=== PATIENT | male | born 1955 | race Caucasian/White ===

== ENCOUNTER → 2016-07-21 | Outpatient (CLI) | payer OTHER ==
[~2016-07-21] MED LIST: BIMA0.01 OPR; BRIM0.2S OPR; MAGN400T6 PO; METF500T PO; MISCCAP PO; MULT-506 PO; NIAC500T11 PO; OMEG10007 PO; POTA99TA PO; TRIATAB3 PO; TUMERIC PO; [UNRECOGNIZED DRUG - CODE] OPR
[2016-07-21 14:54] LABS: BLOOD UREA NITROGEN 14 mg/dl (7-18); BUN/CREATININE RATIO 10.9 (10-20); CARBON DIOXIDE 28 mmol/L (21-32); CHLORIDE 103 mmol/L (98-107); GLUCOSE 125 mg/dl (70-99); POTASSIUM 3.8 mmol/L (3.5-5.1); SODIUM 138 mmol/L (136-145)
[2016-07-21 15:06] LABS: CALCIUM 9.2 mg/dl (8.5-10.1)
[2016-07-21 15:50] LABS: ESTIMATED AVERAGE GLUCOSE 151 mg/dl; HA1C FLAG Normal (Normal)
== END | disposition home or self-care (01) ==
LOC: C.LAB1850 13:38
PROVIDERS: ATTEND Internal Medicine
DX: E11.9 Type 2 diabetes mellitus without complications (principal)

== ENCOUNTER → 2017-03-16 | Outpatient (CLI) | payer OTHER ==
[2017-03-16 12:08] LABS: HEMATOCRIT 45.8 % (42-52); MEAN CELL VOLUME 89.6 fL (80-100); MEAN CORPUSCULAR HEMOGLOBIN 31.3 pg (25-34); MEAN CORPUSCULAR HGB CONC 34.9 g/dl (32-36); MEAN PLATELET VOLUME 9.8 fL (7.4-10.4); PLATELET COUNT 227 K/uL (130-400); RED CELL DISTRIBUTION WIDTH CV 13.6 % (11.5-14.5); RED CELL DISTRIBUTION WIDTH SD 44.9 fL (36.4-46.3); WHITE BLOOD COUNT 8.91 K/uL (4.8-10.8)
[2017-03-16 12:18] LABS: HEMOGLOBIN A1C 7.3 % (4.5-5.6)
[2017-03-16 12:20] LABS: ALT/SGPT 26 U/L (12-78); AST/SGOT 15 U/L (15-37); BLOOD UREA NITROGEN 16 mg/dl (7-18); CALCIUM 9.5 mg/dl (8.5-10.1); CARBON DIOXIDE 29 mmol/L (21-32); CHOLESTEROL 161 mg/dl (0-200); CREATININE 1.15 mg/dl (0.60-1.40); GLUCOSE 139 mg/dl (70-99); POTASSIUM 3.7 mmol/L (3.5-5.1); SODIUM 135 mmol/L (136-145)
[2017-03-16 12:24] LABS: LDL CHOLESTEROL CALCULATED 85 mg/dl
== END | disposition home or self-care (01) ==
LOC: C.LAB1850 10:48
PROVIDERS: ATTEND Internal Medicine
DX: E11.9 Type 2 diabetes mellitus without complications (principal); I10 Essential (primary) hypertension; Z12.5 Encounter for screening for malignant neoplasm of prostate; M19.90 Unspecified osteoarthritis, unspecified site

== ENCOUNTER 2024-05-14 12:48 | Inpatient (IN) ==
[2024-05-14 14:04] LABS: Basophils # (auto) 0.03 K/uL (0.00-0.20); Basophils % (auto) 0.5 %; Eosinophils # (auto) 0.27 K/uL (0.00-0.50); Eosinophils % (auto) 4.2 %; Hematocrit (blood only) 50.2 % (42.0-52.0); Hemoglobin 16.6 g/dl (14.0-18.0); Immature Granulocytes # (auto) 0.01 K/uL (0.01-0.20); Immature Granulocytes % (auto) 0.2 %; Lymphocytes # (auto) 2.24 K/uL (1.20-3.40); Lymphocytes % (auto) 34.9 %; Mean Corpuscular Hemoglobin 30.1 pg (25.0-34.0); Mean Corpuscular Hgb Conc 33.1 g/dL (32.0-36.0); Mean Corpuscular Volume 91.1 fL (80.0-100.0); Mean Platelet Volume 10.1 fL (9.4-12.4); Monocytes % (auto) 10.9 %; Neutrophils # (auto) 3.17 K/uL (1.40-6.50); Neutrophils % (auto) 49.3 %; Platelet Count 195 K/uL (130-400); RDW Coefficient of Variation 13.2 % (11.5-14.5); RDW Standard Deviation 44.3 fL (36.4-46.3); Red Blood Count 5.51 M/uL (4.70-6.10); White Blood Count 6.42 K/ul (4.8-10.8)
--- NOTE | 2024-05-14 14:08 | Emergency Department Note ---
Impression & Plan Cystitis, Dementia, Acute delirium ED Provider Note NAME: YARELY COOK AGE: 69 SEX: M : 1955 ARRIVES VIA: Walk-In INFORMANT: Patient, ED PROVIDER(S): Tony Garcia MD CHIEF COMPLAINT: Confusion, agitation HPI: This is a 69-year-old male who with history of dementia presenting for confusion/agitation. Patient with his reported the history. Over the past few days patient has been not sleeping and wandering around at night and is more verbally aggressive. He has been urinary incontinence numerous times the past few days. He is refused to take his medications as well. He has a baseline history of dementia and is alert and orient x 1. Otherwise he does not know where he is, what year it is or other basic facts that is why the family lives. His states that he is sent here by his primary care doctor's office. ROS: See above HPI for pertinent positives & negatives. A total of 10 systems reviewed and were otherwise negative. Unable to obtain PHYSICAL EXAMINATION: General: resting comfortably in no acute distress Head: Normocephalic and atraumatic Eyes: Normal inspection, extraocular muscles intact Ear, nose, throat: Normal external exam Neck: Normal range of motion Respiratory: lungs clear to auscultation bilaterally Cardiovascular: Regular rate/rhythm, no murmur GI: soft, nontender, no guarding or rebound Extremities: nontender, moves all extremities Neuro: The patient awake and alert, appropriately conversive, no focal deficits, symmetric faces, not oriented Skin: Warm, dry, and intact MEDICAL DECISION MAKING: This is 69-year-old male presenting for confusion of agitation. Initial evaluate the patient without in the room as she was parking the car. Unable to provide any significant history. When does arrive, she was able to give the history as above. Will screen out UTI, intracranial bleed and metabolic disease. Otherwise this may be continuation of patient's dementia versus acute delirium. -Bloodwork is reviewed showing no significant leukocytosis, anemia, electrolyte or creatinine abnormality. Negative troponin -Negative CT head -Discussed with about patient current symptoms and possibly for placement. She is on board about getting placement as he is outside of her current ability to care for him. She has she has not slept in multiple days due to his current condition. -Urinalysis does reveal signs of UTI. Patient will be mated for UTI, continue delirium/dementia and placement -Care discussed Dr. Fam for admission Differential diagnosis: Dementia, delirium, cystitis, intracranial hemorrhage, stroke Independent History obtained from: Diagnostics interpreted by me: ECG: None Cardiac Monitoring: An order was placed for continuous cardiac monitoring. The monitor shows a rate of 81 with sinus rhythm. Past Med/Surg History Problem List (Updated 05/14/24 @ 19:49 by Tony Garcia MD) Acute delirium (Acute) Dementia (Acute) Cystitis (Acute) AMS (altered mental status) Hallucination Physical deconditioning Posterior cortical atrophy Alzheimer's dementia Screening PSA (prostate specific antigen) Adenomatous polyp of colon (Acute) Arthritis (Acute) Chronic sinusitis (Acute) Type 2 diabetes mellitus (Acute) Glaucoma (Acute) HTN (hypertension) (Acute) Medical History Abnormal brain MRI Word finding problem Posterior cortical atrophy Alzheimer's dementia Adenomatous polyp of colon Arthritis Chronic sinusitis Type 2 diabetes mellitus Glaucoma HTN (hypertension) Surgical History H/O oral surgery History of cornea transplant S/P cataract surgery Family History Father Myocardial infarction Diabetes Cardiac disorder Mother Breast cancer Brother Alcohol abuse Aunt Cardiac disorder Denies family history of Ovarian cancer Prostate cancer Colorectal cancer Social History Smoking Status: Former smoker Tobacco Type: Pipe and Cigars Second Hand Exposure: No; Do You Dip or Chew Tobacco: No; Hx Alcohol Use: No Hx Substance Use: No Preferred Language: Maori Communication Ability: Effective Visual Impairment: No Limitations Hearing Ability: Normal marital status: Current Living Situation: Spouse current occupational status: retired Feels Safe at Home: Yes Childhood Exposure to Second-Hand Smoke: Yes Dental Care, Regularly: Yes Physical Activity Frequency: 1-2 Times per Week Seatbelt Use: always Sunscreen Use: Yes Allergies Allergies Allergy/AdvReac Type Severity Reaction Status Date / Time bacitracin Allergy Unknown HIVES Verified 05/05/24 09:59 latex Allergy Unknown RASH Verified 05/05/24 09:59 neomycin Allergy Unknown HIVES Verified 05/05/24 09:59 Penicillins Allergy Unknown Verified 05/05/24 09:59 polymyxin B Allergy Unknown HIVES Verified 05/05/24 09:59 shellfish derived Allergy Unknown SHORTNESS Verified 05/05/24 09:59 OF BREATH strawberry Allergy Unknown Verified 05/05/24 09:59 Home Meds Home Medications Medication Instructions Recorded Confirmed dorzolamide 22.3 mg-timolol 6.8 1 drops ophthalmic (eye) BID 09/22/18 05/14/24 mg/mL eye drops magnesium oxide 400 mg (241.3 mg 400 mg PO DAILY #90 tabs 09/22/18 05/14/24 magnesium) tablet latanoprost 0.005 % eye drops 1 drp ophthalmic (eye) HS 05/30/22 05/14/24 prednisolone acetate 1 % eye 1 drp OPR QAM 05/30/22 05/14/24 drops,suspension mecobalamin (vitamin B12) 5,000 5,000 mcg PO .3XWEEKLY 12/27/22 05/14/24 mcg chewable tablet Vitamin C 1 gummy PO DAILY 05/14/24 05/14/24 cholecalciferol (vitamin D3) 125 125 mcg PO .3XWEEKLY 05/14/24 05/14/24 mcg (5,000 unit) tablet (Vitamin D3) metformin 500 mg tablet,extended 500 mg PO BID 05/14/24 05/14/24 release 24 hr rivastigmine tartrate 3 mg capsule 1.5 mg PO BID 05/14/24 05/14/24 trazodone 50 mg tablet 50 mg PO PM 05/14/24 05/14/24 triamterene 37.5 1 tab PO QAM HTN 05/14/24 05/14/24 mg-hydrochlorothiazide 25 mg tablet Previous Rx's Medication Instructions Recorded blood-glucose meter (OneTouch #1 ea 09/27/18 Ultra2 Meter) blood sugar diagnostic #2 Boxes 10/04/23 dulaglutide 3 mg/0.5 mL 3 mg (0.5 mL) subcut WK #2 mL 12/06/23 subcutaneous pen injector lancets 33 gauge #2 Boxes 01/11/24 rosuvastatin 5 mg tablet 5 mg PO 3XWK #36 tabs 03/07/24 memantine 10 mg tablet 10 mg PO BID 90 days #180 tabs 05/05/24 donepezil 10 mg tablet 10 mg PO QPM 90 days #90 tabs 05/12/24 Results & Data (ED) Vital Signs Vital Signs - 24 hr 05/14/24 12:50 05/14/24 15:03 05/14/24 15:42 Temperature 36.5 C Temperature Source Temporal Artery Scan Pulse Rate 81 Pulse Rate [Right Finger] 70 78 Respiratory Rate 18 18 18 Respiratory Effort / Characteristics Non-Labored Non-Labored Spontaneous Respiratory Depth Normal Normal Respiratory Pattern Regular Regular Blood Pressure 153/94 H Blood Pressure [Right Arm] 170/92 H 155/96 H Blood Pressure Mean 113 Blood Pressure Mean [Right Arm] 118 115 Pulse Oximetry 99 100 96 Oxygen Delivery Method Room Air Room Air Room Air Sepsis Recent Fever Within 48 Hours No Sepsis New/Unexplained Change in Mental Status N/A Sepsis Action Taken by Nursing No Action Required 05/14/24 16:21 05/14/24 16:50 05/14/24 16:51 Temperature Temperature Source Pulse Rate 84 Pulse Rate [Right Finger] 84 Respiratory Rate 15 Respiratory Effort / Characteristics Non-Labored Spontaneous Respiratory Depth Normal Respiratory Pattern Regular Blood Pressure Blood Pressure [Right Arm] 134/86 Blood Pressure Mean Blood Pressure Mean [Right Arm] 102 Pulse Oximetry 98 Oxygen Delivery Method Room Air Room Air Sepsis Recent Fever Within 48 Hours Sepsis New/Unexplained Change in Mental Status Sepsis Action Taken by Nursing 05/14/24 18:30 Temperature Temperature Source Pulse Rate Pulse Rate [Right Finger] 81 Respiratory Rate 18 Respiratory Effort / Characteristics Respiratory Depth Respiratory Pattern Blood Pressure Blood Pressure [Right Arm] 151/104 H Blood Pressure Mean Blood Pressure Mean [Right Arm] 119 Pulse Oximetry 95 Oxygen Delivery Method Room Air Sepsis Recent Fever Within 48 Hours Sepsis New/Unexplained Change in Mental Status Sepsis Action Taken by Nursing Laboratory Data 05/14/24 13:40 05/14/24 13:40 Lab Results 05/14/24 05/14/24 Range/Units 13:40 17:00 WBC 6.42 (4.8-10.8) K/ul RBC 5.51 (4.70-6.10) M/uL Hgb 16.6 (14.0-18.0) g/dl Hct 50.2 (42.0-52.0) % MCV 91.1 (80.0-100.0) fL MCH 30.1 (25.0-34.0) pg MCHC 33.1 (32.0-36.0) g/dL RDW Std Deviation 44.3 (36.4-46.3) fL RDW Coeff of Myah 13.2 (11.5-14.5) % Plt Count 195 (130-400) K/uL MPV 10.1 (9.4-12.4) fL Immature Gran % (Auto) 0.2 % Neut % (Auto) 49.3 % Lymph % (Auto) 34.9 % [place] % (Auto) 10.9 % Eos % (Auto) 4.2 % Baso % (Auto) 0.5 % Neut # (Auto) 3.17 (1.40-6.50) K/uL Lymph # (Auto) 2.24 (1.20-3.40) K/uL [place] # (Auto) 0.70 H (0.11-0.59) K/uL Eos # (Auto) 0.27 (0.00-0.50) K/uL Baso # (Auto) 0.03 (0.00-0.20) K/uL Immature Gran # (Auto) 0.01 (0.01-0.20) K/uL Sodium 140 (136-145) mmol/L Potassium 4.0 (3.5-5.1) mmol/L Chloride 104 (98-107) mmol/L Carbon Dioxide 30 (21-32) mmol/L Anion Gap 6 (3-11) BUN 28 H (6-23) mg/dl Creatinine 1.23 (0.6-1.4) mg/dl Est Cr Clr Drug Dosing Not Reportable eGFR 62.77 BUN/Creatinine Ratio 22.8 H (10-20) Glucose 126 H (70-99(Fasting)) mg/dl Calcium 9.9 (8.6-10.3) mg/dl Total Bilirubin 0.7 (0.2-1.0) mg/dl AST 16 (13-39) U/L ALT 12 (7-52) U/L Alkaline Phosphatase 49 (34-104) U/L Troponin I High Sens < 2.3 (0-20) pg/ml Total Protein 8.0 (6.0-8.3) gm/dl Albumin 4.4 (3.4-5.0) gm/dl Globulin 3.6 (2.5-4.0) gm/dl Albumin/Globulin Ratio 1.2 (0.9-2) Urine Color Yellow Urine Appearance Clear (Clear) Urine pH 6.0 (4.5-7.5) Ur Specific [place] 1.023 (1.000-1.030) Urine Protein Negative (Negative) Urine Glucose (UA) Negative (Negative) Urine Ketones Trace H (Negative) Urine Blood Negative (Negative) Urine Nitrite Negative (Negative) Urine Bilirubin Negative (Negative) Urine Urobilinogen Negative (Negative) Ur Leukocyte Esterase Trace H (Negative) Urine WBC (Auto) 6-10 H (0-5) /hpf Urine RBC (Auto) 0-2 (0-2) /hpf U Hyaline Cast (Auto) 0-2 (0-2) /lpf U Epithel Cells (Auto) 0-2 (0-2) /hpf Urine Bacteria (Auto) None Seen (None Seen) Imaging Data Radiologist's Impression: Head CT 05/14/24 13:58 CT head/brain wo con CLINICAL HISTORY: 69 years-old Male with confusion, agitation, ?fall. Acutely altered mental status TECHNIQUE: Multiple axial CT images of the head were obtained without contrast. A dose lowering technique was utilized adhering to the principles of ALARA. CT DOSE: 625.8 mGy.cm COMPARISON: 10/19/2017 FINDINGS: No acute intracranial hemorrhage, midline shift, intracranial mass, territorial ischemia or abnormal extra-axial collection. Involutional changes with white matter hypodensities suggestive of chronic microvascular ischemic disease, progressed from prior. Ex vacuo ventriculomegaly has also progressed. The calvarium is intact. Chronic severe mucosal thickening of the right maxillary sinus. Mastoid air cells are clear. IMPRESSION: No acute intracranial abnormality. ACT 112: Negative or not required by law. The above report was generated using voice recognition software. It may contain grammatical, syntax or spelling errors. Electronically signed by: Evangelista Paredes M.D. 05/14/2024 2:18 PM Discharge Plan Visit Data Chief Complaint: Confusion Stated Complaint: DEMENTIA ISSUES ED Provider: Tony Garcia Discharge Problem: Cystitis, Dementia, Acute delirium Forms Stand Alone Forms: [facility] [employer] Prescriptions Prescriptions: No Action (DME) blood-glucose meter [OneTouch Ultra2 Meter] misc See Dose Instructions .ROUTE .MEDSUPPLY Qty: 1 0RF Dose Instruction: As directed Rx Instructions: As directed (DME) blood sugar diagnostic Strip See Dose Instructions .ROUTE .MEDSUPPLY Qty: 2 3RF Dose Instruction: As directed Rx Instructions: Test 2 times daily dulaglutide 3 mg/0.5 mL pen injector 3 mg subcut WK Qty: 2 3RF Rx Instructions: sundays (DME) lancets 33 gauge misc See Dose Instructions .ROUTE .MEDSUPPLY Qty: 2 3RF Dose Instruction: As directed Rx Instructions: Test 2 times daily rosuvastatin 5 mg tablet 5 mg PO 3XWK Qty: 36 3RF Rx Instructions: sun, sun and sunday donepezil 10 mg tablet 10 mg PO QPM 90 Days Qty: 90 2RF dorzolamide-timolol 22.3-6.8 mg/mL drops 1 drops OP BID Patient Comments: Instill 1 drop into right eye magnesium oxide 400 mg (241.3 mg magnesium) tablet 400 mg PO DAILY Qty: 90 prednisolone acetate 1 % drops,suspension 1 drp OPR QAM Patient Comments: Instill 1 drop into right eye latanoprost 0.005 % drops 1 drp ophthalmic (eye) HS mecobalamin (vitamin B12) 5,000 mcg tablet,chewable 5,000 mcg PO .3XWEEKLY Rx Instructions: three times a week -sun,sun,sunday memantine 10 mg tablet 10 mg PO BID 90 Days Qty: 180 1RF cholecalciferol (vitamin D3) [Vitamin D3] 125 mcg (5,000 unit) Tablet 125 mcg PO .3XWEEKLY Rx Instructions: sun,sun,sunday Vitamin C 1 gummy PO DAILY Rx Instructions: otc unknown strength trazodone 50 mg tablet 50 mg PO PM triamterene-hydrochlorothiazid 37.5-25 mg tablet 1 tab PO QAM metformin 500 mg tablet extended release 24 hr 500 mg PO BID rivastigmine tartrate 3 mg capsule 1.5 mg PO BID Referrals Referrals: Chris Clayton MD [Primary Care Provider] -
--- NOTE | 2024-05-14 14:19 | CT Scan Report ---
CT head/brain wo con CLINICAL HISTORY: 69 years-old Male with confusion, agitation, ?fall. Acutely altered mental status TECHNIQUE: Multiple axial CT images of the head were obtained without contrast. A dose lowering tech nique was utilized adhering to the principles of ALARA. CT DOSE: 625.8 mGy.cm COMPARISON: 10/19/2017 FINDINGS: No acute intracranial hemorrhage, midline shift, intracranial mass, territorial ischemia or abnormal extra-axial collection. Involutional changes with white matter hypodensities suggestive of chronic mi crovascular ischemic disease, progressed from prior. Ex vacuo ventriculomegaly has also progressed. The calvarium is intact. Chronic severe mucosal thickening of the right maxillary sinus. Mastoid air cells are clear. IMPRESSION: No acute intracranial abnormality. ACT 112: Negative or not required by law. The above report was generated using voice recognition software. It may contain grammatical, syntax o r spelling errors. Electronically signed by: Evangelista Paredes M.D. 05/14/2024 2:18 PM
[2024-05-14 14:38] LABS: Alanine Aminotransferase 12 U/L (7-52); Albumin Globulin Ratio 1.2 (0.9-2); Albumin Level 4.4 gm/dl (3.4-5.0); Alkaline Phosphatase 49 U/L (34-104); Anion Gap 6 (3-11); BUN Creatinine Ratio 22.8 (10-20); Bilirubin,Total 0.7 mg/dl (0.2-1.0); Blood Urea Nitrogen 28 mg/dl (6-23); Calcium 9.9 mg/dl (8.6-10.3); Carbon Dioxide 30 mmol/L (21-32); Chloride 104 mmol/L (98-107); Globulin 3.6 gm/dl (2.5-4.0); Glucose 126 mg/dl (70-99(Fasting)); Sodium 140 mmol/L (136-145); Troponin I High Sensitivity < 2.3 pg/ml (0-20)
[2024-05-14 14:51] LABS: Aspartate Aminotransferase 16 U/L (13-39)
--- NOTE | 2024-05-14 17:32 | History & Physical Report ---
Date of Service May 14, 2024 Assessment & Plan (1) AMS (altered mental status): Plan: Nehemiah is 69-year-old male with a history of progressive Alzheimer's dementia who presents with acute worsening behavioral disturbance, refusing med and aggressiveness not typical of his dementia. He has had incontinence and increased urinary frequency concerning for potential UTI. Per family also have difficulty meeting his current care needs especially with his behavioral change. He is admitted for treatment of UTI, PT/OT, and possible placement if he has a significant contribution from his progressive dementia Acute behavioral disturbance. History of Alzheimer's dementia, history of posterior cortical atrophy - A&Ox1 at baseline - Refusing meds at home Continue donepezil 10 mg daily CThead without acute findings. No focal neurologic deficits to suggest [facility] pathology ?UTI Suspected UTI Patient with incontinence and dysuria UA with trace leukocyte esterase, slight white blood cells. No nitrites or bacteria are seen. UCx pending. Insulin allergic. Ciprofloxacin continued Type II DM Hold home metformin Hold home dulaglutide Basal bolus SSI while admitted Hypertension Continue home antihypertensive PT/OT pending. Case management consulted to facilitate resources due to increased care needs DVT prophylaxis: Lovenox Disposition: MSO CODE STATUS: DNR/DNI (2) Alzheimer's dementia: (3) Type 2 diabetes mellitus: (4) HTN (hypertension): History of Present Illness Primary Care Provider: Chris Clayton MD Chase is a 69-year-old male with a past medical history of type II DM, hypertension, Alzheimer's dementia, posterior cortical atrophy, glaucoma presents to the ER for confusion/agitation and insomnia over the previous few days. Has been more aggressive and with new urinary incontinence. History is limited by dementia. CThead is without acute findings. UA is pending CBC is without leukocytosis BMP is without significant metabolic derangements Patient seen at bedside with his present. History is limited by mental status he is alert and oriented to name only. Redirectable and pleasant but is not able to give nearly any history. Does report that he has had some burning with urination for a few days. His reports that he was more aggressive refusing medications and delirium/confusion last 24 hours. Aggressiveness is very atypical and new, has not occurred with his dementia previously. He has had several episodes of incontinence. Concerned about a UTI due to this. If he does not have a UTI then notes that due to current care needs would need to pursue placement. Nehemiah denies fever chills sweats chest pain chest pressure abdominal pain. Medical History: Reviewed Medications: Reviewed Surgical History: Reviewed Family history: Reviewed Allergies: Reviewed Social History: Reviewed Code Status: DNR/DNI Allergies Allergy/AdvReac Type Severity Reaction Status Date / Time bacitracin Allergy Unknown HIVES Verified 05/05/24 09:59 latex Allergy Unknown RASH Verified 05/05/24 09:59 neomycin Allergy Unknown HIVES Verified 05/05/24 09:59 Penicillins Allergy Unknown Verified 05/05/24 09:59 polymyxin B Allergy Unknown HIVES Verified 05/05/24 09:59 shellfish derived Allergy Unknown SHORTNESS Verified 05/05/24 09:59 OF BREATH strawberry Allergy Unknown Verified 05/05/24 09:59 Home Medications Medication Instructions Recorded Confirmed Type dorzolamide 22.3 mg-timolol 6.8 1 drops ophthalmic (eye) BID 09/22/18 05/14/24 History mg/mL eye drops magnesium oxide 400 mg (241.3 mg 400 mg PO DAILY #90 tabs 09/22/18 05/14/24 History magnesium) tablet blood-glucose meter (3FunnelTouch #1 ea 09/27/18 05/05/24 Rx Ultra2 Meter) latanoprost 0.005 % eye drops 1 drp ophthalmic (eye) HS 05/30/22 05/14/24 History prednisolone acetate 1 % eye 1 drp OPR QAM 05/30/22 05/14/24 History drops,suspension mecobalamin (vitamin B12) 5,000 5,000 mcg PO .3XWEEKLY 12/27/22 05/14/24 History mcg chewable tablet blood sugar diagnostic #2 Boxes 10/04/23 05/05/24 Rx dulaglutide 3 mg/0.5 mL 3 mg (0.5 mL) subcut WK #2 mL 12/06/23 05/14/24 Rx subcutaneous pen injector lancets 33 gauge #2 Boxes 01/11/24 05/05/24 Rx rosuvastatin 5 mg tablet 5 mg PO 3XWK #36 tabs 03/07/24 05/14/24 Rx memantine 10 mg tablet 10 mg PO BID 90 days #180 tabs 05/05/24 05/14/24 Rx donepezil 10 mg tablet 10 mg PO QPM 90 days #90 tabs 05/12/24 05/14/24 Rx Vitamin C 1 gummy PO DAILY 05/14/24 05/14/24 History cholecalciferol (vitamin D3) 125 125 mcg PO .3XWEEKLY 05/14/24 05/14/24 History mcg (5,000 unit) tablet (Vitamin D3) metformin 500 mg tablet,extended 500 mg PO BID 05/14/24 05/14/24 History release 24 hr rivastigmine tartrate 3 mg capsule 1.5 mg PO BID 05/14/24 05/14/24 History trazodone 50 mg tablet 50 mg PO PM 05/14/24 05/14/24 History triamterene 37.5 1 tab PO QAM HTN 05/14/24 05/14/24 History mg-hydrochlorothiazide 25 mg tablet Past Med/Surg History Problem List (Updated 05/14/24 @ 18:17 by Jose Fam MD) AMS (altered mental status) Hallucination Physical deconditioning Posterior cortical atrophy Alzheimer's dementia Screening PSA (prostate specific antigen) Adenomatous polyp of colon (Acute) Arthritis (Acute) Chronic sinusitis (Acute) Type 2 diabetes mellitus (Acute) Glaucoma (Acute) HTN (hypertension) (Acute) Medical History Abnormal brain MRI Word finding problem Posterior cortical atrophy Alzheimer's dementia Adenomatous polyp of colon Arthritis Chronic sinusitis Type 2 diabetes mellitus Glaucoma HTN (hypertension) Surgical History H/O oral surgery History of cornea transplant S/P cataract surgery Family History Father Myocardial infarction Diabetes Cardiac disorder Mother Breast cancer Brother Alcohol abuse Aunt Cardiac disorder Denies family history of Ovarian cancer Prostate cancer Colorectal cancer Social History Smoking Status: Former smoker Tobacco Type: Pipe and Cigars Second Hand Exposure: No; Do You Dip or Chew Tobacco: No; Hx Alcohol Use: No Hx Substance Use: No Preferred Language: Uzbek Communication Ability: Effective Visual Impairment: No Limitations Hearing Ability: Normal marital status: Current Living Situation: Spouse current occupational status: retired Feels Safe at Home: Yes Childhood Exposure to Second-Hand Smoke: Yes Dental Care, Regularly: Yes Physical Activity Frequency: 1-2 Times per Week Seatbelt Use: always Sunscreen Use: Yes Physical Exam Physical Exam: General: Oriented to name only. Alert. Answers questions appropriately. Nontoxic nondistressed HEENT: Atraumatic, normocephalic. 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 Patient has decreased visual acuity and is legally blind at baseline. No visual change. Hearing grossly intact Pulm: CTAB A&P. -wheezes, -rales, -rhonchi. Symmetrical chest rise. No increased work of breathing. No respiratory distress. Cardiac: RRR, -mrg. Radial pulses intact and symmetrical. Abdominal: Nontender, nondistended, soft. BS present. Extremities: Warm and dry Results & Data Results & Data Vital Signs (Past 12 Hours) Vital Signs Temp Pulse Pulse Resp BP BP Pulse Ox 05/14/24 16:51 05/14/24 16:50 84 15 134/86 98 05/14/24 16:21 84 05/14/24 15:42 78 18 155/96 H 96 05/14/24 15:03 70 18 170/92 H 100 05/14/24 12:50 36.5 C 81 18 153/94 H 99 O2 Del Method 05/14/24 16:51 Room Air 05/14/24 16:50 Room Air 05/14/24 16:21 05/14/24 15:42 Room Air 05/14/24 15:03 Room Air 05/14/24 12:50 Room Air PG Care Time/CCT Total # of Minutes Spent Total Time Spent with Patient: Total time spent is greater than 50% in coordination of care (as documented) at patient's floor/unit and/or counseling patient: Coding Level of Care Code 74463 INT INP/OBS CARE MIN Diagnoses AMS (altered mental status) R41.82 Mild Alzheimer's dementia without behavioral disturbance, psychotic disturbance, mood disturbance, or anxiety, unspecified timing of dementia onset G30.9; F02.A0 Alzheimer's disease onset: unspecified onset Dementia behavioral or psychological symptom: without behavioral, psychotic, or mood disturbance or anxiety Dementia severity: mild Type 2 diabetes mellitus E11.9 HTN (hypertension) I10 (2) Alzheimer's dementia Alzheimer's disease onset: unspecified onset Dementia behavioral or psychological symptom: without behavioral, psychotic, or mood disturbance or anxiety Dementia severity: mild Qualified Code(s): G30.9 - Alzheimer's disease, unspecified; F02.A0 - Dementia in other diseases classified elsewhere, mild, without behavioral disturbance, psychotic disturbance, mood disturbance, and anxiety
[2024-05-14 18:27] LABS: Appearance Urine Clear (Clear); Bacteria Urine Automated None Seen (None Seen); Bilirubin Urine Negative (Negative); Blood Urine Negative (Negative); Cast Urine Automated 0-2 /lpf (0-2); Color Urine Yellow; Epithelial Cell Urine Auto 0-2 /hpf (0-2); Glucose Urine UA Negative (Negative); Ketones Urine Trace (Negative); Leukocyte Esterase Urine Trace (Negative); Nitrite Urine Negative (Negative); Protein Urine Negative (Negative); RBC Urine Automated 0-2 /hpf (0-2); Specific Gravity Urine 1.023 (1.000-1.030); Urobilinogen Urine Negative (Negative)
[2024-05-14] MEDS: CIPROFLOXACIN 250 MG TAB PO SCH (19:55)
[2024-05-14] MEDS ORDERED: GLUCAGON FOR INJ 1 MG VIAL SQ PRN (20:23)
[2024-05-14] MEDS ORDERED: GLUCOSE 40% GEL 15 GM TUBE PO PRN (20:23)
[2024-05-14] MEDS ORDERED: CARBOHYDRATES FOR HYPOGLYCEMIA PO PRN (20:23)
[2024-05-14] MEDS ORDERED: GLUCOSE 10 TAB/TUBE PO PRN (20:23)
[2024-05-14] MEDS ORDERED: DEXTROSE 50% 50 ML SYRINGE IV PRN (20:23)
[2024-05-14] MEDS: INSULIN ASPART PER UNIT CHARGE SC SCH (21:11)
[2024-05-14] MEDS: RIVASTIGMINE TARTRATE 1.5 MG CAP PO SCH (21:42)
[2024-05-14] MEDS: MEMANTINE HCL 10 MG TAB PO SCH (21:42)
[2024-05-14] MEDS: traZODone HCL 50 MG TAB PO SCH (21:42)
[2024-05-14] MEDS: DONEPEZIL HCL 10 MG TAB PO SCH (21:42)
[2024-05-14] MEDS: LATANOPROST 0.005% OP SOLN 2.5 ML BTL OP SCH (21:43)
[2024-05-14] MEDS: ENOXAPARIN INJ 40 MG/0.4 ML SYR SQ SCH (21:43)
[2024-05-14] MEDS: DORZOLAMIDE/TIMOLOL 22.3/6.8MG/ML 10 ML BTL OP SCH (21:43)
[2024-05-15] MEDS: hydrOXYzine HCl 10 MG TAB PO ONE (04:08)
[2024-05-15] MEDS: TRIAMTERENE/HCTZ 37.5/25MG TAB PO SCH (08:27)
[2024-05-15] MEDS: ASCORBIC ACID 500 MG TAB PO SCH (08:27)
[2024-05-15] MEDS: MAGNESIUM OXIDE 400 MG TAB PO SCH (08:27)
[2024-05-15] MEDS: LANTUS PER UNIT CHARGE SQ SCH (08:28)
[2024-05-15] MEDS: prednisoLONE acetate 1% OP SUSP 5 ML BTL OPR SCH (08:28)
--- NOTE | 2024-05-15 18:13 | Hospitalist Progress Note ---
Date of Service May 15, 2024 Assessment & Plan (1) AMS (altered mental status): Plan: Nehemiah is 69-year-old male with a history of progressive Alzheimer's dementia who presents with acute worsening behavioral disturbance, refusing med and aggressiveness not typical of his dementia. He has had incontinence and increased urinary frequency concerning for potential UTI. Per family also have difficulty meeting his current care needs especially with his behavioral change. He is admitted for treatment of UTI, PT/OT, and possible placement if he has a significant contribution from his progressive dementia Acute behavioral disturbance. History of Alzheimer's dementia, history of posterior cortical atrophy - A&Ox1 at baseline - Refusing meds at home Continue donepezil 10 mg daily CThead without acute findings. No focal neurologic deficits to suggest [facility] pathology ?UTI Suspected UTI Patient with incontinence and dysuria UA with trace leukocyte esterase, slight white blood cells. No nitrites or bacteria are seen. UCx pending. PCN allergic. Ciprofloxacin continued Type II DM Hold home metformin Hold home dulaglutide Basal bolus SSI while admitted Hypertension Continue home antihypertensive PT/OT pending. Case management consulted to facilitate resources due to increased care needs DVT prophylaxis: Lovenox Disposition: MSO CODE STATUS: DNR/DNI (2) Alzheimer's dementia: (3) Type 2 diabetes mellitus: (4) HTN (hypertension): Admission and Anticipated Discharge Date Admission Date: May 14, 2024 Subjective resting comfortably, no complaints, oriented to person but calm Physical Exam Physical Exam: General: Oriented to name only. Alert. Answers questions appropriately. Nontoxic nondistressed HEENT: Atraumatic, normocephalic. 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 Patient has decreased visual acuity and is legally blind at baseline. No visual change. Hearing grossly intact Pulm: CTAB A&P. -wheezes, -rales, -rhonchi. Symmetrical chest rise. No increased work of breathing. No respiratory distress. Cardiac: RRR, -mrg. Radial pulses intact and symmetrical. Abdominal: Nontender, nondistended, soft. BS present. Extremities: Warm and dry Results & Data Results & Data Vital Signs (Past 12 Hours) Vital Signs Temp Pulse Pulse Resp BP Pulse Ox O2 Del Method 05/15/24 13:45 36.4 C L 82 20 156/94 H 99 Room Air 05/15/24 11:29 75 75 17 144/82 H 95 Room Air 05/15/24 07:00 36.8 C 85 85 18 156/79 H 95 Room Air PG Care Time/CCT Total # of Minutes Spent Total Time Spent with Patient: Total time spent is greater than 50% in coordination of care (as documented) at patient's floor/unit and/or counseling patient: Coding Level of Care Code 25160 SUB INP/OBS CARE 2/35MIN Diagnoses AMS (altered mental status) R41.82 Mild Alzheimer's dementia without behavioral disturbance, psychotic disturbance, mood disturbance, or anxiety, unspecified timing of dementia onset G30.9; F02.A0 Alzheimer's disease onset: unspecified onset Dementia severity: mild Dementia behavioral or psychological symptom: without behavioral, psychotic, or mood disturbance or anxiety Type 2 diabetes mellitus E11.9 HTN (hypertension) I10 (2) Alzheimer's dementia Alzheimer's disease onset: unspecified onset Dementia severity: mild Dementia behavioral or psychological symptom: without behavioral, psychotic, or mood disturbance or anxiety Qualified Code(s): G30.9 - Alzheimer's disease, unspecified; F02.A0 - Dementia in other diseases classified elsewhere, mild, without behavioral disturbance, psychotic disturbance, mood disturbance, and anxiety
[2024-05-16] MEDS: CYANOCOBALAMIN (B-12) 500 MCG TABLET PO SCH (08:27)
[2024-05-16] MEDS: CHOLECALCIFEROL 125 MCG (5,000 UNITS) TAB PO SCH (08:27)
[2024-05-16] MEDS: ROSUVASTATIN CALCIUM 5 MG TAB PO SCH (08:29)
--- NOTE | 2024-05-16 18:14 | Hospitalist Progress Note ---
Date of Service May 16, 2024 Assessment & Plan (1) AMS (altered mental status): Plan: Nehemiah is 69-year-old male with a history of progressive Alzheimer's dementia who presents with acute worsening behavioral disturbance, refusing med and aggressiveness not typical of his dementia. He has had incontinence and increased urinary frequency concerning for potential UTI. Per family also have difficulty meeting his current care needs especially with his behavioral change. He is admitted for treatment of UTI, PT/OT, and possible placement if he has a significant contribution from his progressive dementia Acute behavioral disturbance. History of Alzheimer's dementia, history of posterior cortical atrophy - A&Ox1 at baseline - Refusing meds at home Continue donepezil 10 mg daily CThead without acute findings. No focal neurologic deficits to suggest [facility] pathology ?UTI Suspected UTI Patient with incontinence and dysuria UA with trace leukocyte esterase, slight white blood cells. No nitrites or bacteria are seen. UCx pending. PCN allergic. Ciprofloxacin continued for 3 days total Type II DM Hold home metformin Hold home dulaglutide Basal bolus SSI while admitted Hypertension Continue home antihypertensive PT/OT pending. Case management consulted to facilitate resources due to increased care needs DVT prophylaxis: Lovenox Disposition: MSO CODE STATUS: DNR/DNI Discharge to rehab / SNF when bed available (2) Alzheimer's dementia: (3) Type 2 diabetes mellitus: (4) HTN (hypertension): Admission and Anticipated Discharge Date Admission Date: May 15, 2024 Subjective resting comfortably, no complaints, oriented to person but calm Physical Exam Physical Exam: General: Oriented to name only. Alert. Answers questions appropriately. Nontoxic nondistressed HEENT: Atraumatic, normocephalic. 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 Patient has decreased visual acuity and is legally blind at baseline. No visual change. Hearing grossly intact Pulm: CTAB A&P. -wheezes, -rales, -rhonchi. Symmetrical chest rise. No increased work of breathing. No respiratory distress. Cardiac: RRR, -mrg. Radial pulses intact and symmetrical. Abdominal: Nontender, nondistended, soft. BS present. Extremities: Warm and dry Results & Data Results & Data Vital Signs (Past 12 Hours) Vital Signs Temp Pulse Resp BP Pulse Ox O2 Del Method 05/16/24 14:54 36.8 C 66 16 125/82 97 Room Air 05/16/24 07:26 36.6 C 70 16 125/81 98 Room Air PG Care Time/CCT Total # of Minutes Spent Total Time Spent with Patient: Total time spent is greater than 50% in coordination of care (as documented) at patient's floor/unit and/or counseling patient: Coding Level of Care Code 69994 SUB INP/OBS CARE 2/35MIN Diagnoses AMS (altered mental status) R41.82 Mild Alzheimer's dementia without behavioral disturbance, psychotic disturbance, mood disturbance, or anxiety, unspecified timing of dementia onset G30.9; F02.A0 Alzheimer's disease onset: unspecified onset Dementia severity: mild Dementia behavioral or psychological symptom: without behavioral, psychotic, or mood disturbance or anxiety Type 2 diabetes mellitus E11.9 HTN (hypertension) I10 (2) Alzheimer's dementia Alzheimer's disease onset: unspecified onset Dementia severity: mild Dementia behavioral or psychological symptom: without behavioral, psychotic, or mood disturbance or anxiety Qualified Code(s): G30.9 - Alzheimer's disease, unspecified; F02.A0 - Dementia in other diseases classified elsewhere, mild, without behavioral disturbance, psychotic disturbance, mood disturbance, and anxiety
--- NOTE | 2024-05-17 17:08 | Hospitalist Progress Note ---
Date of Service May 17, 2024 Assessment & Plan (1) AMS (altered mental status): Plan: Nehemiah is 69-year-old male with a history of progressive Alzheimer's dementia who presents with acute worsening behavioral disturbance, refusing med and aggressiveness not typical of his dementia. He has had incontinence and increased urinary frequency concerning for potential UTI. Per family also have difficulty meeting his current care needs especially with his behavioral change. He is admitted for treatment of UTI, PT/OT, and possible placement if he has a significant contribution from his progressive dementia Acute behavioral disturbance. History of Alzheimer's dementia, history of posterior cortical atrophy - A&Ox1 at baseline - Refusing meds at home Continue donepezil 10 mg daily CThead without acute findings. No focal neurologic deficits to suggest [facility] pathology ?UTI Suspected UTI Patient with incontinence and dysuria UA with trace leukocyte esterase, slight white blood cells. No nitrites or bacteria are seen. UCx pending. PCN allergic. Ciprofloxacin continued for 3 days total Type II DM Hold home metformin Hold home dulaglutide Basal bolus SSI while admitted Hypertension Continue home antihypertensive PT/OT pending. Case management consulted to facilitate resources due to increased care needs DVT prophylaxis: Lovenox Disposition: MSO CODE STATUS: DNR/DNI Discharge to rehab / SNF when bed available (2) Alzheimer's dementia: (3) Type 2 diabetes mellitus: (4) HTN (hypertension): Admission and Anticipated Discharge Date Admission Date: May 15, 2024 Subjective resting comfortably, no complaints, oriented to person but calm, unable to tell me where he is Physical Exam Physical Exam: General: Oriented to name only. Alert. Answers questions appropriately. Nontoxic nondistressed HEENT: Atraumatic, normocephalic. 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 Patient has decreased visual acuity and is legally blind at baseline. No visual change. Hearing grossly intact Pulm: CTAB A&P. -wheezes, -rales, -rhonchi. Symmetrical chest rise. No increased work of breathing. No respiratory distress. Cardiac: RRR, -mrg. Radial pulses intact and symmetrical. Abdominal: Nontender, nondistended, soft. BS present. Extremities: Warm and dry Results & Data Results & Data Vital Signs (Past 12 Hours) Vital Signs Temp Pulse Resp BP Pulse Ox O2 Del Method 05/17/24 14:24 36.7 C 78 16 148/85 H 99 Room Air 05/17/24 07:24 36.9 C 80 16 152/88 H 99 Room Air PG Care Time/CCT Total # of Minutes Spent Total Time Spent with Patient: Total time spent is greater than 50% in coordination of care (as documented) at patient's floor/unit and/or counseling patient: Coding Level of Care Code 17190 SUB INP/OBS CARE 235MIN Diagnoses AMS (altered mental status) R41.82 Mild Alzheimer's dementia without behavioral disturbance, psychotic disturbance, mood disturbance, or anxiety, unspecified timing of dementia onset G30.9; F02.A0 Alzheimer's disease onset: unspecified onset Dementia severity: mild Dementia behavioral or psychological symptom: without behavioral, psychotic, or mood disturbance or anxiety Type 2 diabetes mellitus E11.9 HTN (hypertension) I10 (2) Alzheimer's dementia Alzheimer's disease onset: unspecified onset Dementia severity: mild Dementia behavioral or psychological symptom: without behavioral, psychotic, or mood disturbance or anxiety Qualified Code(s): G30.9 - Alzheimer's disease, unspecified; F02.A0 - Dementia in other diseases classified elsewhere, mild, without behavioral disturbance, psychotic disturbance, mood disturbance, and anxiety
--- NOTE | 2024-05-18 10:37 | Hospitalist Progress Note ---
Date of Service May 18, 2024 Assessment & Plan (1) AMS (altered mental status): Plan: Nehemiah is 69-year-old male with a history of progressive Alzheimer's dementia who presents with acute worsening behavioral disturbance, refusing med and aggressiveness not typical of his dementia. He has had incontinence and increased urinary frequency concerning for potential UTI. Per family also have difficulty meeting his current care needs especially with his behavioral change. He is admitted for treatment of UTI, PT/OT, and possible placement if he has a significant contribution from his progressive dementia Acute behavioral disturbance. History of Alzheimer's dementia, history of posterior cortical atrophy - A&Ox1 at baseline - Refusing meds at home but has been cooperative here Continue donepezil 10 mg daily CThead without acute findings. No focal neurologic deficits to suggest stroke pathology Suspected UTI Patient with incontinence and dysuria UA with trace leukocyte esterase, slight white blood cells. No nitrites or bacteria are seen. UCx pending. PCN allergic. Ciprofloxacin continued for 3 days total Type II DM Hold home metformin Hold home dulaglutide Basal bolus SSI while admitted Hypertension Continue home antihypertensive PT/OT pending. Case management consulted to facilitate resources due to increased care needs DVT prophylaxis: Lovenox Disposition: MSO CODE STATUS: DNR/DNI Discharge to rehab / SNF when bed available (2) Alzheimer's dementia: (3) Type 2 diabetes mellitus: (4) HTN (hypertension): Admission and Anticipated Discharge Date Admission Date: May 15, 2024 Subjective eating beakfast, calm and pleasant but oriented to person only, doesn't know that he is in the hospital, no pain complaints, says BM regular, no issues overnight Physical Exam Physical Exam: General: Oriented to name only. Alert. Answers questions appropriately. Nontoxic nondistressed HEENT: Atraumatic, normocephalic. 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 Patient has decreased visual acuity and is legally blind at baseline. No visual change. Hearing grossly intact Pulm: CTAB A&P. -wheezes, -rales, -rhonchi. Symmetrical chest rise. No increased work of breathing. No respiratory distress. Cardiac: RRR, -mrg. Radial pulses intact and symmetrical. Abdominal: Nontender, nondistended, soft. BS present. Extremities: Warm and dry Results & Data Results & Data Vital Signs (Past 12 Hours) Vital Signs Temp Pulse Resp BP Pulse Ox O2 Del Method 05/18/24 07:01 36.4 C L 76 16 125/81 99 Room Air PG Care Time/CCT Total # of Minutes Spent Total Time Spent with Patient: Total time spent is greater than 50% in coordination of care (as documented) at patient's floor/unit and/or counseling patient: Coding Level of Care Code 43877 SUB INP/OBS CARE 2/35MIN Diagnoses AMS (altered mental status) R41.82 Mild Alzheimer's dementia without behavioral disturbance, psychotic disturbance, mood disturbance, or anxiety, unspecified timing of dementia onset G30.9; F02.A0 Alzheimer's disease onset: unspecified onset Dementia severity: mild Dementia behavioral or psychological symptom: without behavioral, psychotic, or mood disturbance or anxiety Type 2 diabetes mellitus E11.9 HTN (hypertension) I10 (2) Alzheimer's dementia Alzheimer's disease onset: unspecified onset Dementia severity: mild Dementia behavioral or psychological symptom: without behavioral, psychotic, or mood disturbance or anxiety Qualified Code(s): G30.9 - Alzheimer's disease, unspecified; F02.A0 - Dementia in other diseases classified elsewhere, mild, without behavioral disturbance, psychotic disturbance, mood disturbance, and anx iety
[2024-05-18] MEDS: MELATONIN 3 MG TAB PO PRN (21:19)
--- NOTE | 2024-05-19 15:06 | Hospitalist Progress Note ---
Date of Service May 19, 2024 Assessment & Plan (1) AMS (altered mental status): Plan: Nehemiah is 69-year-old male with a history of progressive Alzheimer's dementia who presents with acute worsening behavioral disturbance, refusing med and aggressiveness not typical of his dementia. He has had incontinence and increased urinary frequency concerning for potential UTI. Per family also have difficulty meeting his current care needs especially with his behavioral change. He is admitted for treatment of UTI, PT/OT, and possible placement if he has a significant contribution from his progressive dementia Acute behavioral disturbance. History of Alzheimer's dementia, history of posterior cortical atrophy - A&Ox1 at baseline - Refusing meds at home but has been cooperative here Continue donepezil 10 mg daily CThead without acute findings. No focal neurologic deficits to suggest stroke pathology - PT/OT recommending 24h care/dementia unit @ discharge. Suspected UTI Patient with incontinence and dysuria UA with trace leukocyte esterase, slight white blood cells. No nitrites or bacteria are seen. -s/p treatment w/ Ciprofloxacin Type II DM Hold home metformin Hold home dulaglutide Basal bolus SSI while admitted Hypertension Continue home antihypertensive CM following. Patient medical stable for discharge pending placement. DVT prophylaxis: Lovenox Disposition: MSO CODE STATUS: DNR/DNI (2) Alzheimer's dementia: (3) Type 2 diabetes mellitus: (4) HTN (hypertension): Admission and Anticipated Discharge Date Admission Date: May 15, 2024 Supervising Physician Co-Signing Physician Notes Attending Attestation - Chart reviewed, care plan d/w FLORIAN Aguilar. I agree w/ the mack components of her documentation. BSGs are borderline low. Would reduce or stop his lantus. Last a1c was <6%. Les Beckford MD Subjective Patient seen and examined this morning. Patient denied any complaints at time of encounter. Physical Exam Constitutional: WD/WN, vitals as above Eyes: PERRL, conjunctivae normal, anicteric sclerae Respiratory: breathing unlabored Cardiovascular: well perfused Psychiatric: AXOx1 Results & Data Results & Data Vital Signs (Past 12 Hours) Vital Signs Temp Pulse Resp BP Pulse Ox O2 Del Method 05/19/24 11:48 36.8 C 64 16 138/96 97 Room Air 05/19/24 07:50 36.4 C L 70 16 142/98 H 99 Room Air PG Care Time/CCT Total # of Minutes Spent Total Time Spent with Patient: Total time spent is greater than 50% in coordination of care (as documented) at patient's floor/unit and/or counseling patient: Coding Level of Care Code 91417 SUB INP/OBS CARE Diagnoses AMS (altered mental status) R41.82 Mild Alzheimer's dementia without behavioral disturbance, psychotic disturbance, mood disturbance, or anxiety, unspecified timing of dementia onset G30.9; F02.A0 Alzheimer's disease onset: unspecified onset Dementia behavioral or psychological symptom: without behavioral, psychotic, or mood disturbance or anxiety Dementia severity: mild Type 2 diabetes mellitus E11.9 HTN (hypertension) I10 (2) Alzheimer's dementia Alzheimer's disease onset: unspecified onset Dementia behavioral or psychological symptom: without behavioral, psychotic, or mood disturbance or anxiety Dementia severity: mild Qualified Code(s): G30.9 - Alzheimer's disease, unspecified; F02.A0 - Dementia in other diseases classified elsewhere, mild, without behavioral disturbance, psychotic disturbance, mood disturbance, and anxiety
--- NOTE | 2024-05-20 13:58 | Hospitalist Progress Note ---
Date of Service May 20, 2024 Assessment & Plan (1) AMS (altered mental status): Plan: Nehemiah is 69-year-old male with a history of progressive Alzheimer's dementia who presents with acute worsening behavioral disturbance, refusing med and aggressiveness not typical of his dementia. He has had incontinence and increased urinary frequency concerning for potential UTI. Per family also have difficulty meeting his current care needs especially with his behavioral change. He is admitted for treatment of UTI, PT/OT, and possible placement if he has a significant contribution from his progressive dementia Acute behavioral disturbance. History of Alzheimer's dementia, history of posterior cortical atrophy - A&Ox1 at baseline - Refusing meds at home but has been cooperative here Continue donepezil 10 mg daily CThead without acute findings. No focal neurologic deficits to suggest stroke pathology - PT/OT recommending 24h care/dementia unit @ discharge. Suspected UTI Patient with incontinence and dysuria UA with trace leukocyte esterase, slight white blood cells. No nitrites or bacteria are seen. - s/p treatment w/ Ciprofloxacin Type II DM Hold home metformin and dulaglutide Basal bolus SSI while admitted Hypertension Continue home antihypertensive CM following. Patient medical stable for discharge pending placement. DVT prophylaxis: Lovenox Disposition: MSO CODE STATUS: DNR/DNI (2) Alzheimer's dementia: (3) Type 2 diabetes mellitus: (4) HTN (hypertension): Admission and Anticipated Discharge Date Admission Date: May 15, 2024 Supervising Physician Co-Signing Physician Notes Attending Attestation - Chart reviewed, care plan d/w FLORIAN Aguilar. I agree w/ the mack components of her documentation. BSGs had been borderline low. Lantus stopped. BSGs now 100 or more; no further borderline low values. Les Beckford MD Subjective Patient seen and examined this morning. patient was resting comfortably in bed, he denied complaints. Physical Exam Constitutional: WD/WN, vitals as above Eyes: PERRL, conjunctivae normal, anicteric sclerae Respiratory: breathing unlabored Cardiovascular: well perfused Results & Data Results & Data Vital Signs (Past 12 Hours) Vital Signs Temp Pulse Resp BP Pulse Ox O2 Del Method 05/20/24 07:31 36.7 C 77 16 128/78 95 Room Air PG Care Time/CCT Total # of Minutes Spent Total Time Spent with Patient: Total time spent is greater than 50% in coordination of care (as documented) at patient's floor/unit and/or counseling patient: Coding Level of Care Code 05728 SUB INP/OBS CARE Diagnoses AMS (altered mental status) R41.82 Mild Alzheimer's dementia without behavioral disturbance, psychotic disturbance, mood disturbance, or anxiety, unspecified timing of dementia onset G30.9; F02.A0 Alzheimer's disease onset: unspecified onset Dementia behavioral or psychological symptom: without behavioral, psychotic, or mood disturbance or anxiety Dementia severity: mild Type 2 diabetes mellitus E11.9 HTN (hypertension) I10 (2) Alzheimer's dementia Alzheimer's disease onset: unspecified onset Dementia behavioral or psychological symptom: without behavioral, psychotic, or mood disturbance or anxiety Dementia severity: mild Qualified Code(s): G30.9 - Alzheimer's disease, unspecified; F02.A0 - Dementia in other diseases classified elsewhere, mild, without behavioral disturbance, psychotic disturbance, mood disturbance, and anxiety
--- NOTE | 2024-05-21 14:27 | Hospitalist Progress Note ---
Date of Service May 21, 2024 Assessment & Plan (1) AMS (altered mental status): Plan: Nehemiah is 69-year-old male with a history of progressive Alzheimer's dementia who presents with acute worsening behavioral disturbance, refusing med and aggressiveness not typical of his dementia. He has had incontinence and increased urinary frequency concerning for potential UTI. Per family also have difficulty meeting his current care needs especially with his behavioral change. He is admitted for treatment of UTI, PT/OT, and possible placement if he has a significant contribution from his progressive dementia Acute behavioral disturbance. History of Alzheimer's dementia, history of posterior cortical atrophy - A&Ox1 at baseline - Refusing meds at home but has been cooperative here Continue donepezil 10 mg daily CThead without acute findings. No focal neurologic deficits to suggest stroke pathology - PT/OT recommending 24h care/dementia unit @ discharge. Suspected UTI - resolved Patient with incontinence and dysuria UA with trace leukocyte esterase, slight white blood cells. No nitrites or bacteria are seen. - s/p treatment w/ Ciprofloxacin Type II DM Hold home metformin and dulaglutide Basal bolus SSI while admitted Hypertension Continue home antihypertensive CM following. Patient medical stable for discharge pending placement. DVT prophylaxis: Lovenox Disposition: MSO CODE STATUS: DNR/DNI (2) Alzheimer's dementia: (3) Type 2 diabetes mellitus: (4) HTN (hypertension): Admission and Anticipated Discharge Date Admission Date: May 15, 2024 Supervising Physician Co-Signing Physician Notes Attending Attestation - Chart reviewed, care plan d/w FLORIAN Aguilar. I agree w/ the mack components of her documentation. Les Beckford MD Subjective Patient seen and examined this morning. patient resting comfortably in bed. Denied any complaints. Physical Exam Constitutional: WD/WN, vitals as above Eyes: PERRL, conjunctivae normal, anicteric sclerae Respiratory: breathing unlabored Cardiovascular: well perfused Results & Data Results & Data Vital Signs (Past 12 Hours) Vital Signs Temp Pulse Pulse Resp BP Pulse Ox O2 Del Method 05/21/24 12:01 36.4 C L 62 18 118/78 96 Room Air 05/21/24 07:36 36.6 C 72 20 124/82 97 Room Air 05/21/24 07:16 36.6 C 72 16 118/77 96 Room Air PG Care Time/CCT Total # of Minutes Spent Total Time Spent with Patient: Total time spent is greater than 50% in coordination of care (as documented) at patient's floor/unit and/or counseling patient: Coding Level of Care Code 54489 SUB INP/OBS CARE Diagnoses AMS (altered mental status) R41.82 Mild Alzheimer's dementia without behavioral disturbance, psychotic disturbance, mood disturbance, or anxiety, unspecified timing of dementia onset G30.9; F02.A0 Alzheimer's disease onset: unspecified onset Dementia behavioral or psychological symptom: without behavioral, psychotic, or mood disturbance or anxiety Dementia severity: mild Type 2 diabetes mellitus E11.9 HTN (hypertension) I10 (2) Alzheimer's dementia Alzheimer's disease onset: unspecified onset Dementia behavioral or psychological symptom: without behavioral, psychotic, or mood disturbance or anxiety Dementia severity: mild Qualified Code(s): G30.9 - Alzheimer's disease, unspecified; F02.A0 - Dementia in other diseases classified elsewhere, mild, without behavioral disturbance, psychotic disturbance, mood disturbance, and anxiety
--- NOTE | 2024-05-22 15:41 | Hospitalist Progress Note ---
Date of Service May 22, 2024 Assessment & Plan (1) AMS (altered mental status): Plan: Nehemiah is 69-year-old male with a history of progressive Alzheimer's dementia who presents with acute worsening behavioral disturbance, refusing med and aggressiveness not typical of his dementia. He has had incontinence and increased urinary frequency concerning for potential UTI. Per family also have difficulty meeting his current care needs especially with his behavioral change. He is admitted for treatment of UTI, PT/OT, and possible placement if he has a significant contribution from his progressive dementia Acute behavioral disturbance. History of Alzheimer's dementia, history of posterior cortical atrophy - A&Ox1 at baseline - Refusing meds at home but has been cooperative here Continue donepezil 10 mg daily CThead without acute findings. No focal neurologic deficits to suggest stroke pathology - PT/OT recommending 24h care/dementia unit @ discharge. Suspected UTI - resolved Patient with incontinence and dysuria UA with trace leukocyte esterase, slight white blood cells. No nitrites or bacteria are seen. - s/p treatment w/ Ciprofloxacin Type II DM Hold home metformin and dulaglutide Basal bolus SSI while admitted Hypertension Continue home antihypertensive CM following. Patient medical stable for discharge pending placement. DVT prophylaxis: Lovenox Disposition: MSO CODE STATUS: DNR/DNI (2) Alzheimer's dementia: (3) Type 2 diabetes mellitus: (4) HTN (hypertension): Admission and Anticipated Discharge Date Admission Date: May 15, 2024 Subjective Patient seen and examined this morning. patient denied any complaints. He was sitting in his chair. Physical Exam Constitutional: WD/WN, vitals as above Eyes: PERRL, conjunctivae normal, anicteric sclerae Respiratory: breathing unlabored Cardiovascular: well perfused Results & Data Results & Data Vital Signs (Past 12 Hours) Vital Signs Temp Pulse Resp BP Pulse Ox O2 Del Method 05/22/24 08:19 37.3 C 70 16 110/74 96 Room Air PG Care Time/CCT Total # of Minutes Spent Total Time Spent with Patient: Total time spent is greater than 50% in coordination of care (as documented) at patient's floor/unit and/or counseling patient: Coding Level of Care Code 71363 SUB INP/OBS CARE 03/15MIN Diagnoses AMS (altered mental status) R41.82 Mild Alzheimer's dementia without behavioral disturbance, psychotic disturbance, mood disturbance, or anxiety, unspecified timing of dementia onset G30.9; F02.A0 Alzheimer's disease onset: unspecified onset Dementia severity: mild Dementia behavioral or psychological symptom: without behavioral, psychotic, or mood disturbance or anxiety Type 2 diabetes mellitus E11.9 HTN (hypertension) I10 (2) Alzheimer's dementia Alzheimer's disease onset: unspecified onset Dementia severity: mild Dementia behavioral or psychological symptom: without behavioral, psychotic, or mood disturbance or anxiety Qualified Code(s): G30.9 - Alzheimer's disease, unspecified; F02.A0 - Dementia in other diseases classified elsewhere, mild, without behavioral disturbance, psychotic disturbance, mood disturbance, and anxiety
--- NOTE | 2024-05-23 15:42 | Hospitalist Progress Note ---
Date of Service May 23, 2024 Assessment & Plan (1) AMS (altered mental status): Plan: Nehemiah is 69-year-old male with a history of progressive Alzheimer's dementia who presents with acute worsening behavioral disturbance, refusing med and aggressiveness not typical of his dementia. He has had incontinence and increased urinary frequency concerning for potential UTI. Per family also have difficulty meeting his current care needs especially with his behavioral change. He is admitted for treatment of UTI, PT/OT, and possible placement if he has a significant contribution from his progressive dementia Acute behavioral disturbance. History of Alzheimer's dementia, history of posterior cortical atrophy - A&Ox1 at baseline - Refusing meds at home but has been cooperative here Continue donepezil 10 mg daily CThead without acute findings. No focal neurologic deficits to suggest stroke pathology - PT/OT recommending 24h care/dementia unit @ discharge. Suspected UTI - resolved Patient with incontinence and dysuria UA with trace leukocyte esterase, slight white blood cells. No nitrites or bacteria are seen. - s/p treatment w/ Ciprofloxacin Type II DM Given prolonged hospital stay secondary to placement, metformin resumed 05/23. - Continue to hold dulaglutide while inpatient. - BSG remain stable, will switch to check prn in event patient becomes symptomatic. Hypertension Continue home antihypertensive CM following. Patient medical stable for discharge pending placement. DVT prophylaxis: Lovenox Disposition: MSO CODE STATUS: DNR/DNI (2) Alzheimer's dementia: (3) Type 2 diabetes mellitus: (4) HTN (hypertension): Admission and Anticipated Discharge Date Admission Date: May 15, 2024 Subjective Patient seen and examined this morning. patient denies any complaints today. He was eating lunch and did not like it so he was waiting for a grilled cheese from dietary. Physical Exam Constitutional: WD/WN, vitals as above Eyes: PERRL, conjunctivae normal, anicteric sclerae Respiratory: breathing unlabored Cardiovascular: well perfused Results & Data Results & Data Vital Signs (Past 12 Hours) Vital Signs Temp Pulse Resp BP BP Pulse Ox O2 Del Method 05/23/24 15:27 36.7 C 73 18 160/96 H 99 Room Air 05/23/24 07:34 36.4 C L 68 18 121/80 100 Room Air PG Care Time/CCT Total # of Minutes Spent Total Time Spent with Patient: Total time spent is greater than 50% in coordination of care (as documented) at patient's floor/unit and/or counseling patient: Coding Level of Care Code 04538 SUB INP/OBS CARE Diagnoses AMS (altered mental status) R41.82 Mild Alzheimer's dementia without behavioral disturbance, psychotic disturbance, mood disturbance, or anxiety, unspecified timing of dementia onset G30.9; F02.A0 Alzheimer's disease onset: unspecified onset Dementia severity: mild Dementia behavioral or psychological symptom: without behavioral, psychotic, or mood disturbance or anxiety Type 2 diabetes mellitus E11.9 HTN (hypertension) I10 (2) Alzheimer's dementia Alzheimer's disease onset: unspecified onset Dementia severity: mild Dementia behavioral or psychological symptom: without behavioral, psychotic, or mood disturbance or anxiety Qualified Code(s): G30.9 - Alzheimer's disease, unspecified; F02.A0 - Dementia in other diseases classified elsewhere, mild, without behavioral disturbance, psychotic disturbance, mood disturbance, and anxiety
[2024-05-23] MEDS: metFORMIN HCL ER 500 MG TABCR PO SCH (18:04)
--- NOTE | 2024-05-24 14:14 | Hospitalist Progress Note ---
Date of Service May 24, 2024 Assessment & Plan (1) AMS (altered mental status): Plan: Nehemiah is 69-year-old male with a history of progressive Alzheimer's dementia who presents with acute worsening behavioral disturbance, refusing med and aggressiveness not typical of his dementia. He has had incontinence and increased urinary frequency concerning for potential UTI. Per family also have difficulty meeting his current care needs especially with his behavioral change. He is admitted for treatment of UTI, PT/OT, and possible placement if he has a significant contribution from his progressive dementia Acute behavioral disturbance. History of Alzheimer's dementia, history of posterior cortical atrophy - A&Ox1 at baseline - Refusing meds at home but has been cooperative here Continue donepezil 10 mg daily CThead without acute findings. No focal neurologic deficits to suggest stroke pathology - PT/OT recommending 24h care/dementia unit @ discharge. Suspected UTI - resolved - s/p treatment w/ Ciprofloxacin Type II DM Given prolonged hospital stay secondary to placement, metformin resumed 05/23. - Continue to hold dulaglutide while inpatient. - BSG remain stable, will switch to check prn in event patient becomes symptomatic. Hypertension Continue home antihypertensive CM following. Patient medical stable for discharge pending placement. DVT prophylaxis: Lovenox Disposition: MSO CODE STATUS: DNR/DNI (2) Alzheimer's dementia: (3) Type 2 diabetes mellitus: (4) HTN (hypertension): Admission and Anticipated Discharge Date Admission Date: May 15, 2024 Subjective Patient seen and examined this morning. Patient doing well and without complaints today. He was sitting in his chair and reported breakfast was good. Physical Exam Constitutional: WD/WN, vitals as above Eyes: PERRL, conjunctivae normal, anicteric sclerae Respiratory: normal respiratory effort Cardiovascular: well perfused Results & Data Results & Data Vital Signs (Past 12 Hours) Vital Signs Temp Pulse Resp BP Pulse Ox O2 Del Method 05/24/24 07:44 36.6 C 72 16 122/78 98 Room Air PG Care Time/CCT Total # of Minutes Spent Total Time Spent with Patient: Total time spent is greater than 50% in coordination of care (as documented) at patient's floor/unit and/or counseling patient: Coding Level of Care Code 88316 SUB INP/OBS CARE 03/15MIN Diagnoses AMS (altered mental status) R41.82 Mild Alzheimer's dementia without behavioral disturbance, psychotic disturbance, mood disturbance, or anxiety, unspecified timing of dementia onset G30.9; F02.A0 Alzheimer's disease onset: unspecified onset Dementia severity: mild Dementia behavioral or psychological symptom: without behavioral, psychotic, or mood disturbance or anxiety Type 2 diabetes mellitus E11.9 HTN (hypertension) I10 (2) Alzheimer's dementia Alzheimer's disease onset: unspecified onset Dementia severity: mild Dementia behavioral or psychological symptom: without behavioral, psychotic, or mood disturbance or anxiety Qualified Code(s): G30.9 - Alzheimer's disease, unspecified; F02.A0 - Dementia in other diseases classified elsewhere, mild, without behavioral disturbance, psychotic disturbance, mood disturbance, and anxiety
--- NOTE | 2024-05-25 12:43 | Hospitalist Progress Note ---
Date of Service May 25, 2024 Assessment & Plan (1) AMS (altered mental status): Plan: Nehemiah is 69-year-old male with a history of progressive Alzheimer's dementia who presents with acute worsening behavioral disturbance, refusing med and aggressiveness not typical of his dementia. He has had incontinence and increased urinary frequency concerning for potential UTI. Per family also have difficulty meeting his current care needs especially with his behavioral change. He is admitted for treatment of UTI, PT/OT, and possible placement if he has a significant contribution from his progressive dementia Acute behavioral disturbance. History of Alzheimer's dementia, history of posterior cortical atrophy - A&Ox1 at baseline - Refusing meds at home but has been cooperative here Continue donepezil 10 mg daily CThead without acute findings. No focal neurologic deficits to suggest stroke pathology - PT/OT recommending 24h care/dementia unit @ discharge. Suspected UTI - resolved - s/p treatment w/ Ciprofloxacin Type II DM Given prolonged hospital stay secondary to placement, metformin resumed 05/23. - Continue to hold dulaglutide while inpatient. - BSG remain stable, will switch to check prn in event patient becomes symptomatic. Hypertension Continue home antihypertensive CM following. Patient medical stable for discharge pending placement. DVT prophylaxis: Lovenox CODE STATUS: DNR/DNI (2) Alzheimer's dementia: (3) Type 2 diabetes mellitus: (4) HTN (hypertension): Admission and Anticipated Discharge Date Admission Date: May 15, 2024 Subjective Patient seen and examined this morning. Patient doing well and denies any complaints. Patient remains pleasant and cooperative throughout his hospital stay. Physical Exam Constitutional: WD/WN, vitals as above Eyes: PERRL, conjunctivae normal, anicteric sclerae Respiratory: breathing unlabored Cardiovascular: well perfused Results & Data Results & Data Vital Signs (Past 12 Hours) Vital Signs Temp Pulse Resp BP Pulse Ox O2 Del Method 05/25/24 07:00 36.4 C L 64 20 106/69 99 Room Air PG Care Time/CCT Total # of Minutes Spent Total Time Spent with Patient: Total time spent is greater than 50% in coordination of care (as documented) at patient's floor/unit and/or counseling patient: Coding Level of Care Code 89947 SUB INP/OBS CARE 03/15MIN Diagnoses AMS (altered mental status) R41.82 Mild Alzheimer's dementia without behavioral disturbance, psychotic disturbance, mood disturbance, or anxiety, unspecified timing of dementia onset G30.9; F02.A0 Alzheimer's disease onset: unspecified onset Dementia severity: mild Dementia behavioral or psychological symptom: without behavioral, psychotic, or mood disturbance or anxiety Type 2 diabetes mellitus E11.9 HTN (hypertension) I10 (2) Alzheimer's dementia Alzheimer's disease onset: unspecified onset Dementia severity: mild Dementia behavioral or psychological symptom: without behavioral, psychotic, or mood disturbance or anxiety Qualified Code(s): G30.9 - Alzheimer's disease, unspecified; F02.A0 - Dementia in other diseases classified elsewhere, mild, without behavioral disturbance, psychotic disturbance, mood disturbance, and anxiety
--- NOTE | 2024-05-26 14:50 | Hospitalist Progress Note ---
Date of Service May 26, 2024 Assessment & Plan (1) AMS (altered mental status): (2) Alzheimer's dementia: (3) Type 2 diabetes mellitus: (4) HTN (hypertension): Plan Nehemiah is 69-year-old male with a history of progressive Alzheimer's dementia who presents with acute worsening behavioral disturbance, refusing med and aggressiveness Per family also have difficulty meeting his current care needs especially with his behavioral change. He is admitted for treatment of UTI, PT/OT, and possible placement if he has a significant contribution from his progressive dementia Acute behavioral disturbance. History of Alzheimer's dementia, history of posterior cortical atrophy A&Ox1 at baseline. Refusing meds at home but has been cooperative here Continue donepezil 10 mg daily CThead without acute findings. No focal neurologic deficits to suggest stroke pathology PT/OT recommending 24h care/dementia unit, CM following Suspected UTI - resolved s/p treatment w/ Ciprofloxacin Type II DM Given prolonged hospital stay secondary to placement, metformin resumed 05/23. Continue to hold dulaglutide while inpatient. BSG remain stable, will switch to check prn in event patient becomes symptomatic. Hypertension Continue triamterene/ HCTZ Dispo: continued inpatient stay awaiting placement DVT prophylaxis: Lovenox updated by phone 05/26 Admission and Anticipated Discharge Date Admission Date: May 15, 2024 Subjective Pateint seen sitting up in the bed, after eating lunch. Oreitned to self only, denies acute complaints Review of Systems Review of Systems: All systems reviewed & are unremarkable except as noted in Subjective Physical Exam Physical Exam: General: NAD, vitals as above, sitting up in bed Pulm: breathing unlabored CV: well perfused extremities: moves all extremities A&O x 1 Results & Data Results & Data Vital Signs (Past 12 Hours) Vital Signs Temp Pulse Pulse Resp BP Pulse Ox O2 Del Method 05/26/24 14:42 98.2 F 76 18 116/77 97 Room Air 05/26/24 11:32 98.1 F 71 17 122/74 98 Room Air 05/26/24 08:01 97.5 F L 71 18 126/78 98 Room Air PG Care Time/CCT Total # of Minutes Spent Total Time Spent with Patient: Total time spent is greater than 50% in coordination of care (as documented) at patient's floor/unit and/or counseling patient: Coding Level of Care Code 04828 SUB INP/OBS CARE 03/15MIN Diagnoses AMS (altered mental status) R41.82 Mild Alzheimer's dementia without behavioral disturbance, psychotic disturbance, mood disturbance, or anxiety, unspecified timing of dementia onset G30.9; F02.A0 Alzheimer's disease onset: unspecified onset Dementia severity: mild Dementia behavioral or psychological symptom: without behavioral, psychotic, or mood disturbance or anxiety Type 2 diabetes mellitus E11.9 HTN (hypertension) I10 (2) Alzheimer's dementia Alzheimer's disease onset: unspecified onset Dementia severity: mild Dementia behavioral or psychological symptom: without behavioral, psychotic, or mood disturbance or anxiety Qualified Code(s): G30.9 - Alzheimer's disease, unspecified; F02.A0 - Dementia in other diseases classified elsewhere, mild, without behavioral disturbance, psychotic disturbance, mood disturbance, and anxiety
--- NOTE | 2024-05-27 14:21 | Hospitalist Progress Note ---
Date of Service May 27, 2024 Assessment & Plan (1) AMS (altered mental status): (2) Alzheimer's dementia: (3) Type 2 diabetes mellitus: (4) HTN (hypertension): Plan Nehemiah is 69-year-old male with a history of progressive Alzheimer's dementia who presents with acute worsening behavioral disturbance, refusing med and aggressiveness Per family also have difficulty meeting his current care needs especially with his behavioral change. He is admitted for treatment of UTI, PT/OT, and possible placement if he has a significant contribution from his progressive dementia Acute behavioral disturbance. History of Alzheimer's dementia, history of posterior cortical atrophy A&Ox1 at baseline. Refusing meds at home but has been cooperative here Continue donepezil 10 mg daily, Namenda 10mg po bid, and rivastigmine Trazodone for sleep CThead without acute findings. No focal neurologic deficits to suggest stroke pathology PT/OT recommending 24h care/dementia unit, CM following - no accepting facility at this time Suspected UTI - resolved s/p treatment w/ Ciprofloxacin Type II DM Given prolonged hospital stay secondary to placement, metformin resumed 05/23. Continue to hold dulaglutide while inpatient. BSG remain stable, will switch to check prn in event patient becomes symptomatic. Hypertension-BPs controlled Continue triamterene/ HCTZ Dispo: continued inpatient stay awaiting placement DVT prophylaxis: Lovenox updated by phone 05/26 Admission and Anticipated Discharge Date Admission Date: May 15, 2024 Supervising Physician Co-Signing Physician Notes PA Supervision Note: I did not personally see or examine the patient today, but I verified all mack points of FLORIAN To's assessment and plan with the following exceptions/additions: None Subjective Patient seen sitting up in the chair eating lunch no acute complaints Review of Systems Review of Systems: All systems reviewed & are unremarkable except as noted in Subjective Physical Exam Physical Exam: General: NAD, vitals as above, sitting up in the chair, plesant Pulm: breathing unlabored, CTA CV: well perfused, regular rate no murmur extremities: moves all extremities A&O x 1 Results & Data Results & Data Vital Signs (Past 12 Hours) Vital Signs Temp Pulse Resp BP Pulse Ox O2 Del Method 05/27/24 07:27 97.5 F L 107 H 14 115/73 96 Room Air PG Care Time/CCT Total # of Minutes Spent Total Time Spent with Patient: Total time spent is greater than 50% in coordination of care (as documented) at patient's floor/unit and/or counseling patient: Coding Level of Care Code 52643 SUB INP/OBS CARE Diagnoses AMS (altered mental status) R41.82 Mild Alzheimer's dementia without behavioral disturbance, psychotic disturbance, mood disturbance, or anxiety, unspecified timing of dementia onset G30.9; F02.A0 Alzheimer's disease onset: unspecified onset Dementia behavioral or psychological symptom: without behavioral, psychotic, or mood disturbance or anxiety Dementia severity: mild Type 2 diabetes mellitus E11.9 HTN (hypertension) I10 (2) Alzheimer's dementia Alzheimer's disease onset: unspecified onset Dementia behavioral or psychological symptom: without behavioral, psychotic, or mood disturbance or anxiety Dementia severity: mild Qualified Code(s): G30.9 - Alzheimer's disease, unspecified; F02.A0 - Dementia in other diseases classified elsewhere, mild, without behavioral disturbance, psychotic disturbance, mood disturbance, and anxiety
--- NOTE | 2024-05-28 10:37 | Hospitalist Progress Note ---
Date of Service May 28, 2024 Assessment & Plan (1) AMS (altered mental status): (2) Alzheimer's dementia: (3) Type 2 diabetes mellitus: (4) HTN (hypertension): Plan Nehemiah is 69-year-old male with a history of progressive Alzheimer's dementia who presents with acute worsening behavioral disturbance, refusing med and aggressiveness Per family also have difficulty meeting his current care needs especially with his behavioral change. He is admitted for treatment of UTI, PT/OT, and possible placement if he has a significant contribution from his progressive dementia Acute behavioral disturbance. History of Alzheimer's dementia, history of posterior cortical atrophy A&Ox1 at baseline. Refusing meds at home but has been cooperative here Continue donepezil 10 mg daily, Namenda 10mg po bid, and rivastigmine Trazodone for sleep CThead without acute findings. No focal neurologic deficits to suggest stroke pathology PT/OT recommending 24h care/dementia unit, CM following - no accepting facility at this time Suspected UTI - resolved s/p treatment w/ Ciprofloxacin Type II DM Given prolonged hospital stay secondary to placement, metformin resumed 05/23. Continue to hold dulaglutide while inpatient. BSG remain stable, will switch to check prn in event patient becomes symptomatic. Hypertension-BPs controlled Continue triamterene/ HCTZ Dispo: continued inpatient stay awaiting placement DVT prophylaxis: Lovenox updated by phone 05/26 Admission and Anticipated Discharge Date Admission Date: May 15, 2024 Supervising Physician Co-Signing Physician Notes PA Supervision Note: I did not personally see or examine the patient today, but I verified all mack points of FLORIAN To's assessment and plan with the following exceptions/additions: None Subjective Patient seen sititng up in the chair, no family present at bedside no acute complaints given magazine and ice cream to occupy time Review of Systems Review of Systems: All systems reviewed & are unremarkable except as noted in Subjective Physical Exam Physical Exam: General: NAD, vitals as above, sitting up in the chair, plesant Pulm: breathing unlabored, CV: well perfused, extremities: moves all extremities A&O x 1 Results & Data Results & Data Vital Signs (Past 12 Hours) Vital Signs Temp Pulse Resp BP Pulse Ox O2 Del Method 05/28/24 07:48 98.1 F 73 16 99/63 L 97 Room Air PG Care Time/CCT Total # of Minutes Spent Total Time Spent with Patient: Total time spent is greater than 50% in coordination of care (as documented) at patient's floor/unit and/or counseling patient: Coding Level of Care Code 16825 SUB INP/OBS CARE Diagnoses AMS (altered mental status) R41.82 Mild Alzheimer's dementia without behavioral disturbance, psychotic disturbance, mood disturbance, or anxiety, unspecified timing of dementia onset G30.9; F02.A0 Alzheimer's disease onset: unspecified onset Dementia behavioral or psychological symptom: without behavioral, psychotic, or mood disturbance or anxiety Dementia severity: mild Type 2 diabetes mellitus E11.9 HTN (hypertension) I10 (2) Alzheimer's dementia Alzheimer's disease onset: unspecified onset Dementia behavioral or psychological symptom: without behavioral, psychotic, or mood disturbance or anxiety Dementia severity: mild Qualified Code(s): G30.9 - Alzheimer's disease, unspecified; F02.A0 - Dementia in other diseases classified elsewhere, mild, without behavioral disturbance, psychotic disturbance, mood disturbance, and anxiety
--- NOTE | 2024-05-29 10:48 | Hospitalist Progress Note ---
Date of Service May 29, 2024 Assessment & Plan (1) AMS (altered mental status): (2) Alzheimer's dementia: (3) Type 2 diabetes mellitus: (4) HTN (hypertension): Plan Nehemiah is 69-year-old male with a history of progressive Alzheimer's dementia who presents with acute worsening behavioral disturbance, refusing med and aggressiveness Per family also have difficulty meeting his current care needs especially with his behavioral change. Initial evaluation showed CThead without acute findings. No focal neurologic deficits to suggest stroke pathology. There was concerns that he was not taking his meds at home but has been taking without issue here. Maintains baseline orientation of A&O x1. PT/OT have recommended 24hr care /dementia unit, no accepting facility at this time. Acute behavioral disturbance. History of Alzheimer's dementia, history of posterior cortical atrophy A&Ox1 at baseline. Refusing meds at home but has been cooperative here Continue donepezil 10 mg daily, Namenda 10mg po bid, and rivastigmine--> of note, Neuro recently increased his rivastigmine dose to 3mg po bid-need to find out if he was taking this increased dose prior to admission-perhaps this caused his acute delirium? Trazodone for sleep PT/OT recommending 24h care/dementia unit, CM following - no accepting facility at this time Suspected UTI - Presented with urinary frequency, incontinence, UA with WBCs, LE but no bacteria, Ur cx never sent. Symptoms resolved after treatment with Cipro Type II DM Given prolonged hospital stay secondary to placement, metformin resumed 05/23. Continue to hold dulaglutide while inpatient. BSG remain stable, will switch to check prn in event patient becomes symptomatic. Hypertension-BPs controlled Continue triamterene/ HCTZ Dispo: continued inpatient stay awaiting placement DVT prophylaxis: Lovenox updated by phone 05/26 Admission and Anticipated Discharge Date Admission Date: May 15, 2024 Supervising Physician Co-Signing Physician Notes FLORIAN Supervision Note: I did not personally see or examine the patient today, but I verified all mack points of FLORIAN To's assessment and plan with the following exceptions/additions: None Subjective Patient seen sitting up in the chair. no acute complaints declines additional magazines Review of Systems Review of Systems: All systems reviewed & are unremarkable except as noted in Subjective Physical Exam Physical Exam: General: NAD, vitals as above, sitting up in the chair, plesant Pulm: breathing unlabored, CV: well perfused, extremities: moves all extremities A&O x 1 Results & Data Results & Data Vital Signs (Past 12 Hours) Vital Signs Temp Pulse Resp BP Pulse Ox O2 Del Method 05/29/24 07:39 97.7 F 68 16 117/73 96 Room Air PG Care Time/CCT Total # of Minutes Spent Total Time Spent with Patient: Total time spent is greater than 50% in coordination of care (as documented) at patient's floor/unit and/or counseling patient: Coding Level of Care Code 23439 SUB INP/OBS CARE 03/15MIN Diagnoses AMS (altered mental status) R41.82 Mild Alzheimer's dementia without behavioral disturbance, psychotic disturbance, mood disturbance, or anxiety, unspecified timing of dementia onset G30.9; F02.A0 Alzheimer's disease onset: unspecified onset Dementia behavioral or psychological symptom: without behavioral, psychotic, or mood disturbance or anxiety Dementia severity: mild Type 2 diabetes mellitus E11.9 HTN (hypertension) I10 (2) Alzheimer's dementia Alzheimer's disease onset: unspecified onset Dementia behavioral or psychological symptom: without behavioral, psychotic, or mood disturbance or anxiety Dementia severity: mild Qualified Code(s): G30.9 - Alzheimer's disease, unspecified; F02.A0 - Dementia in other diseases classified elsewhere, mild, without behavioral disturbance, psychotic disturbance, mood disturbance, and anxiety
[2024-05-29] MEDS: IBUPROFEN 200 MG TAB PO STA (22:00)
[2024-05-30] MEDS: hydrOXYzine HCl 10 MG TAB PO PRN (03:30)
--- NOTE | 2024-05-30 15:24 | Hospitalist Progress Note ---
Date of Service May 30, 2024 Assessment & Plan (1) AMS (altered mental status): (2) Alzheimer's dementia: (3) Type 2 diabetes mellitus: (4) HTN (hypertension): Plan Nehemiah is 69-year-old male with a history of progressive Alzheimer's dementia who presents with acute worsening behavioral disturbance, refusing med and aggressiveness Per family also have difficulty meeting his current care needs especially with his behavioral change. Initial evaluation showed CThead without acute findings. No focal neurologic deficits to suggest stroke pathology. There was concerns that he was not taking his meds at home but has been taking without issue here. Maintains baseline orientation of A&O x1. PT/OT have recommended 24hr care /dementia unit, no accepting facility at this time. Acute behavioral disturbance. History of Alzheimer's dementia, history of posterior cortical atrophy A&Ox1 at baseline. Refusing meds at home but has been cooperative here Continue donepezil 10 mg daily, Namenda 10mg po bid, and rivastigmine--> of note, Neuro recently increased his rivastigmine dose to 3mg po bid- and was taking this prior to admission, ?cause of worsened behaviors. stable on 1.5mg BID so will continue at this dose Trazodone for sleep PT/OT recommending 24h care/dementia unit, CM following - can go to [place] next week Suspected UTI - resolved s/p treatment w/ Ciprofloxacin Type II DM Given prolonged hospital stay secondary to placement, metformin resumed 05/23. Continue to hold dulaglutide while inpatient. BSG remain stable, will switch to check prn in event patient becomes symptomati c. Hypertension-BPs controlled Continue triamterene/ HCTZ Dispo: continued inpatient stay awaiting placement DVT prophylaxis: Lovenox updated by phone 05/26 & 05/30 Admission and Anticipated Discharge Date Admission Date: May 15, 2024 Supervising Physician Co-Signing Physician Notes Attending Attestation: Chart reviewed, care plan d/w FLORIAN To. I agree w/ the mack components of her documentation. Les Beckford MD Subjective sitting up in the chair - eating lunch no acute complaints Review of Systems Review of Systems: All systems reviewed & are unremarkable except as noted in Subjective Physical Exam Physical Exam: General: NAD, vitals as above, sitting up in the chair, plesant Pulm: breathing unlabored, CV: well perfused, extremities: moves all extremities A&O x 1 Results & Data Results & Data Vital Signs (Past 12 Hours) Vital Signs Temp Pulse Resp BP Pulse Ox O2 Del Method 05/30/24 14:24 98.1 F 59 L 18 111/74 100 Room Air 05/30/24 07:53 98.1 F 70 18 133/66 97 Room Air Laboratory Results POC gucose reviewed PG Care Time/CCT Total # of Minutes Spent Total Time Spent with Patient: Total time spent is greater than 50% in coordination of care (as documented) at patient's floor/unit and/or counseling patient: Coding Level of Care Code 66171 SUB INP/OBS CARE 03/15MIN Diagnoses AMS (altered mental status) R41.82 Mild Alzheimer's dementia without behavioral disturbance, psychotic disturbance, mood disturbance, or anxiety, unspecified timing of dementia onset G30.9; F02.A0 Alzheimer's disease onset: unspecified onset Dementia behavioral or psychological symptom: without behavioral, psychotic, or mood disturbance or anxiety Dementia severity: mild Type 2 diabetes mellitus E11.9 HTN (hypertension) I10 (2) Alzheimer's dementia Alzheimer's disease onset: unspecified onset Dementia behavioral or psychological symptom: without behavioral, psychotic, or mood disturbance or anxiety Dementia severity: mild Qualified Code(s): G30.9 - Alzheimer's disease, unspecified; F02.A0 - Dementia in other diseases classified elsewhere, mild, without behavioral disturbance, psychotic disturbance, mood disturbance, and anxiety
--- NOTE | 2024-05-31 10:20 | Hospitalist Progress Note ---
Date of Service May 31, 2024 Assessment & Plan (1) AMS (altered mental status): (2) Alzheimer's dementia: (3) Type 2 diabetes mellitus: (4) HTN (hypertension): Plan Nehemiah is 69-year-old male with a history of progressive Alzheimer's dementia who presents with acute worsening behavioral disturbance, refusing med and aggressiveness Per family also have difficulty meeting his current care needs especially with his behavioral change. Initial evaluation showed CThead without acute findings. No focal neurologic deficits to suggest stroke pathology. There was concerns that he was not taking his meds at home but has been taking without issue here. Maintains baseline orientation of A&O x1. PT/OT have recommended 24hr care /dementia unit, no accepting facility at this time. Acute behavioral disturbance. History of Alzheimer's dementia, history of posterior cortical atrophy A&Ox1 at baseline. Refusing meds at home but has been cooperative here Continue donepezil 10 mg daily, Namenda 10mg po bid, and rivastigmine--> of note, Neuro recently increased his rivastigmine dose to 3mg po bid- and was taking this prior to admission, ?cause of worsened behaviors. stable on 1.5mg BID so will continue at this dose Trazodone for sleep PT/OT recommending 24h care/dementia unit, CM following - can go to [place] next week Increased restlessness over the last two nights - will schedule melatonin with prn dose. Encourage walks after meal during the day to promote sleep/wake cycles - discussed with RN and communicaiton order placed. Suspected UTI - resolved s/p treatment w/ Ciprofloxacin Type II DM Given prolonged hospital stay secondary to placement, metformin resumed 05/23. Continue to hold dulaglutide while inpatient. BSG remain stable, will switch to check prn in event patient becomes symptomatic. Hypertension-BPs controlled Continue triamterene/ HCTZ Dispo: continued inpatient stay awaiting placement DVT prophylaxis: Lovenox updated by phone 05/26 & 05/30 Admission and Anticipated Discharge Date Admission Date: May 15, 2024 Supervising Physician Co-Signing Physician Notes Attending Attestation: Chart reviewed, care plan d/w FLORIAN To. I agree w/ the mack components of her documentation. Awaiting placement. Les Beckford MD Subjective patient seen sitting up in the chair no acute complaints thinks he slept well - does not remember being restless or moving in and out of bed yesteday Review of Systems Review of Systems: All systems reviewed & are unremarkable except as noted in Subjective Physical Exam Physical Exam: General: NAD, vitals as above, sitting up in the chair, plesant Pulm: breathing unlabored, CTA anteriorly CV: well perfused, RRR extremities: moves all extremities A&O x 1 Results & Data Results & Data Vital Signs (Past 12 Hours) Vital Signs Temp Pulse Resp BP Pulse Ox O2 Del Method 05/31/24 07:13 97.5 F L 56 L 16 107/68 98 Room Air PG Care Time/CCT Total # of Minutes Spent Total Time Spent with Patient: Total time spent is greater than 50% in coordination of care (as documented) at patient's floor/unit and/or counseling patient: Coding Level of Care Code 05605 SUB INP/OBS CARE 03/15MIN Diagnoses AMS (altered mental status) R41.82 Mild Alzheimer's dementia without behavioral disturbance, psychotic disturbance, mood disturbance, or anxiety, unspecified timing of dementia onset G30.9; F02.A0 Alzheimer's disease onset: unspecified onset Dementia behavioral or psychological symptom: without behavioral, psychotic, or mood disturbance or anxiety Dementia severity: mild Type 2 diabetes mellitus E11.9 HTN (hypertension) I10 (2) Alzheimer's dementia Alzheimer's disease onset: unspecified onset Dementia behavioral or psychological symptom: without behavioral, psychotic, or mood disturbance or anxiety Dementia severity: mild Qualified Code(s): G30.9 - Alzheimer's disease, unspecified; F02.A0 - Dementia in other diseases classified elsewhere, mild, without behavioral disturbance, psychotic disturbance, mood disturbance, and anxiety
[2024-05-31] MEDS: MELATONIN 3 MG TAB PO SCH (19:44)
--- NOTE | 2024-06-01 10:45 | Hospitalist Progress Note ---
Date of Service June 01, 2024 Assessment & Plan (1) AMS (altered mental status): (2) Alzheimer's dementia: (3) Type 2 diabetes mellitus: (4) HTN (hypertension): Plan Nehemiah is 69-year-old male with a history of progressive Alzheimer's dementia who presents with acute worsening behavioral disturbance, refusing med and aggressiveness Per family also have difficulty meeting his current care needs especially with his behavioral change. Initial evaluation showed CThead without acute findings. No focal neurologic deficits to suggest stroke pathology. There was concerns that he was not taking his meds at home but has been taking without issue here. Maintains baseline orientation of A&O x1. PT/OT have recommended 24hr care /dementia unit, no accepting facility at this time. Acute behavioral disturbance. History of Alzheimer's dementia, history of posterior cortical atrophy A&Ox1 at baseline. Refusing meds at home but has been cooperative here Continue donepezil 10 mg daily, Namenda 10mg po bid, and rivastigmine--> of note, Neuro recently increased his rivastigmine dose to 3mg po bid- and was taking this prior to admission, ?cause of worsened behaviors. stable on 1.5mg BID so will continue at this dose Trazodone for sleep PT/OT recommending 24h care/dementia unit, CM following - can go to [place] next week Increased restlessness over the last three nights - will schedule melatonin with prn dose. Encourage walks after meal during the day to promote sleep/wake cycles - discussed with RN and communicaiton order placed. Suspected UTI - resolved s/p treatment w/ Ciprofloxacin Type II DM Given prolonged hospital stay secondary to placement, metformin resumed 05/23. Continue to hold dulaglutide while inpatient. BSG remain stable, will switch to check prn in event patient becomes symptomatic. Hypertension-BPs controlled Continue triamterene/ HCTZ Dispo: continued inpatient stay awaiting placement DVT prophylaxis: Lovenox updated by phone 05/26 & 05/30 Admission and Anticipated Discharge Date Admission Date: May 15, 2024 Supervising Physician Co-Signing Physician Notes Attending Attestation: Chart reviewed, care plan d/w FLORIAN To. I agree w/ the mack components of her documentation. Awaiting placement. Les Beckford MD Subjective sitting up in the chair, no acute complains Agreeable to go for a walk in the halls with me Review of Systems Review of Systems: All systems reviewed & are unremarkable except as noted in Subjective Physical Exam Physical Exam: General: NAD, vitals as above, sitting up in the chair, plesant Pulm: breathing unlabored, CV: well perfused, extremities: moves all extremities, ambulates with supervision assist A&O x 1 Results & Data Results & Data Vital Signs (Past 12 Hours) Vital Signs Temp Pulse Resp BP Pulse Ox O2 Del Method 06/01/24 07:21 97.2 F L 70 16 113/74 97 Room Air Laboratory Results poc glucose reviewed PG Care Time/CCT Total # of Minutes Spent Total Time Spent with Patient: Total time spent is greater than 50% in coordination of care (as documented) at patient's floor/unit and/or counseling patient: Coding Level of Care Code 58648 SUB INP/OBS CARE 03/15MIN Diagnoses AMS (altered mental status) R41.82 Mild Alzheimer's dementia without behavioral disturbance, psychotic disturbance, mood disturbance, or anxiety, unspecified timing of dementia onset G30.9; F02.A0 Alzheimer's disease onset: unspecified onset Dementia behavioral or psychological symptom: without behavioral, psychotic, or mood disturbance or anxiety Dementia severity: mild Type 2 diabetes mellitus E11.9 HTN (hypertension) I10 (2) Alzheimer's dementia Alzheimer's disease onset: unspecified onset Dementia behavioral or psychological symptom: without behavioral, psychotic, or mood disturbance or anxiety Dementia severity: mild Qualified Code(s): G30.9 - Alzheimer's disease, unspecified; F02.A0 - Dementia in other diseases classified elsewhere, mild, without behavioral disturbance, psychotic disturbance, mood disturbance, and anxiety
--- NOTE | 2024-06-02 13:37 | Hospitalist Progress Note ---
Date of Service June 02, 2024 Assessment & Plan (1) AMS (altered mental status): (2) Alzheimer's dementia: (3) Type 2 diabetes mellitus: (4) HTN (hypertension): Plan Nehemiah is 69-year-old male with a history of progressive Alzheimer's dementia who presents with acute worsening behavioral disturbance, refusing med and aggressiveness Per family also have difficulty meeting his current care needs especially with his behavioral change. Initial evaluation showed CThead without acute findings. No focal neurologic deficits to suggest stroke pathology. There was concerns that he was not taking his meds at home but has been taking without issue here. Maintains baseline orientation of A&O x1. PT/OT have recommended 24hr care /dementia unit, no accepting facility at this time. Acute behavioral disturbance. History of Alzheimer's dementia, history of posterior cortical atrophy A&Ox1 at baseline. Refusing meds at home but has been cooperative here Continue donepezil 10 mg daily, Namenda 10mg po bid, and rivastigmine--> Neuro recently increased rivastigmine dose to 3mg po bid- was taking prior to admission, ?cause of worsened behaviors. stable on 1.5mg BID so will continue at this dose Trazodone/Melatonin for insomnia Encourage walks after meal during day to promote sleep/wake cycles. PT/OT recommending 24h care/dementia unit, following - can go to [place] 06/03 Suspected UTI - resolved s/p treatment w/ Ciprofloxacin Type II DM Given prolonged hospital stay secondary to placement, metformin resumed 05/23. Continue to hold dulaglutide while inpatient. BSG remain stable, will switch to check prn in event patient becomes symptomatic. Hypertension-BPs controlled Continue triamterene/ HCTZ Dispo: continued inpatient stay awaiting placement, anticipate discharge to [place] [facility] 06/03. DVT prophylaxis: Lovenox P2P completed 06/02 which was for SNF rehab & was denied by insurance. Discussed w/ CM Admission and Anticipated Discharge Date Admission Date: May 15, 2024 Supervising Physician Co-Signing Physician Notes Attending Attestation: Chart reviewed, care plan d/w FLORIAN Aguilar. I agree w/ the mack components of her documentation. BPs are well controlled and, at times, low-normal or low. Consider reduction in BP meds or holding them completely. Les Beckford MD Subjective Patient seen and examined this morning. Patient doing well today. he denies any complaints. Physical Exam Constitutional: WD/WN, vitals as above Eyes: PERRL, conjunctivae normal, anicteric sclerae Respiratory: breathing unlabored Cardiovascular: well perfused Psychiatric: pleasant, confused Results & Data Results & Data Vital Signs (Past 12 Hours) Vital Signs Temp Pulse Resp BP Pulse Ox O2 Del Method 06/02/24 07:03 36.7 C 66 16 95/60 L 97 Room Air PG Care Time/CCT Total # of Minutes Spent Total Time Spent with Patient: Total time spent is greater than 50% in coordination of care (as documented) at patient's floor/unit and/or counseling patient: Coding Level of Care Code 40885 SUB INP/OBS CARE 2/35MIN Diagnoses AMS (altered mental status) R41.82 Mild Alzheimer's dementia without behavioral disturbance, psychotic disturbance, mood disturbance, or anxiety, unspecified timing of dementia onset G30.9; F02.A0 Alzheimer's disease onset: unspecified onset Dementia behavioral or psychological symptom: without behavioral, psychotic, or mood disturbance or anxiety Dementia severity: mild Type 2 diabetes mellitus E11.9 HTN (hypertension) I10 (2) Alzheimer's dementia Alzheimer's disease onset: unspecified onset Dementia behavioral or psychological symptom: without behavioral, psychotic, or mood disturbance or anxiety Dementia severity: mild Qualified Code(s): G30.9 - Alzheimer's disease, unspecified; F02.A0 - Dementia in other diseases classified elsewhere, mild, without behavioral disturbance, psychotic disturbance, mood disturbance, and anxiety
[2024-06-03 07:46] VITALS: BP 123/78; PULSE 69; RESP 16; TEMP 97.7; O2SAT 97
--- NOTE | 2024-06-03 09:29 | Discharge Summary ---
Discharge Summary Date of Service June 03, 2024 Principal Dx & Hospital Course #1 = Principal Diagnosis (1) AMS (altered mental status): (2) Alzheimer's dementia: (3) Type 2 diabetes mellitus: (4) HTN (hypertension): Geoffrey Cerna is 69-year-old male with a history of progressive Alzheimer's dementia who presents with acute worsening behavioral disturbance, refusing med and aggressiveness Per family also have difficulty meeting his current care needs especially with his behavioral change. Initial evaluation showed CThead without acute findings. No focal neurologic deficits to suggest stroke pathology. There was concerns that he was not taking his meds at home but has been taking without issue here. Maintains baseline orientation of A&O x1. PT/OT have recommended 24hr care /dementia unit, no accepting facility at this time. Acute behavioral disturbance. History of Alzheimer's dementia, history of posterior cortical atrophy A&Ox1 at baseline. Refusing meds at home but has been cooperative here Continue donepezil 10 mg daily, Namenda 10mg po bid, and rivastigmine--> Neuro recently increased rivastigmine dose to 3mg po bid- was taking prior to admission, possible cause of worsened behaviors. stable on 1.5mg BID so will continue at this dose Trazodone/Melatonin for insomnia Encourage walks after meal during day to promote sleep/wake cycles. PT/OT recommending 24h care/dementia unit, CM following - can go to [place] 06/03 Suspected UTI - resolved s/p treatment w/ Ciprofloxacin Type II DM Resume outpatient medications. Hypertension-BPs controlled Continue triamterene/ HCTZ Patient was noticed to have mild erythema/edema of right foot. Patient able to walk w/o pain. no tenderness to palpation. - recommend to continue to monitor while at [place]. Suspect he bumped his foot off of something. Did not appear infected at time of discharge. Patient discharged to [place] memory unit 06/03. Admission HPI Per Admitting Provider Chase is a 69-year-old male with a past medical history of type II DM, hyper tension, Alzheimer's dementia, posterior cortical atrophy, glaucoma presents to the ER for confusion/agitation and insomnia over the previous few days. Has been more aggressive and with new urinary incontinence. History is limited by dementia. CThead is without acute findings. UA is pending CBC is without leukocytosis BMP is without significant metabolic derangements Patient seen at bedside with his present. History is limited by mental status he is alert and oriented to name only. Redirectable and pleasant but is not able to give nearly any history. Does report that he has had some burning with urination for a few days. His reports that he was more aggressive refusing medications and delirium/confusion last 24 hours. Aggressiveness is very atypical and new, has not occurred with his dementia previously. He has had several episodes of incontinence. Concerned about a UTI due to this. If he does not have a UTI then notes that due to current care needs would need to pursue placement. Nehemiah denies fever chills sweats chest pain chest pressure abdominal pain. Medical History: Reviewed Medications: Reviewed Surgical History: Reviewed Family history: Reviewed Allergies: Reviewed Social History: Reviewed Code Status: DNR/DNI Discharge Exam Constitutional WD/WN, vitals as above Eyes PERRL, conjunctivae normal, anicteric sclerae Respiratory breathing unlabored Cardiovascular well perfused Skin mild erythema/edema of right foot. No tenderness to palpation. Psychiatric pleasant Discharge Plan Discharge Items Patient Disposition: Transfer Custodial Fac Reason For Visit: CONFUSION Discharge Diagnosis: Dementia, UTI Activity: Resume your previous activity Non-emergency contact: Primary Care Provider Call non-emergency contact if: you have any medication questions and your symptoms worsen Follow-up/Referrals: Pro,Chris Rueda MD [Primary Care Provider] - Diet: Carb Consistent or DM2 Addtl Attending Provider Instructions: Mr. Phillips, You were recently hospitalized for worsened confusion. You were found to have a UTI and were treated appropriately. Please see recommendations below regarding your discharge. Please resume your outpatient medications. Please follow up with your PCP within 1-2 weeks of discharge. If you develop any chest pain, shortness of breath, fevers please report back to the ER for further care. Sincerely, Lucero Aguilar PA-C Pending Studies at Discharge: No Stand-Alone Forms: My [facility] Skilled Items Patient informed of condition?: Yes DNR: Yes Discharge Level of Care: Skilled Communicable Disease: No Discharge Prognosis: Stable Lines: None Urinary Catheter: No Medications and DC Order Prescriptions: New hydroxyzine HCl 10 mg tablet 10 mg PO Q8H PRN (Reason: anxiety) Qty: 30 0RF melatonin 3 mg capsule 3 mg PO HS Qty: 30 0RF Continued latanoprost 0.005 % drops 1 drp ophthalmic (eye) HS Qty: 2.5 0RF donepezil 10 mg tablet 10 mg PO QPM 90 Days Qty: 90 2RF prednisolone acetate 1 % drops,suspension 1 drp OPR QAM Qty: 5 0RF magnesium oxide 400 mg (241.3 mg magnesium) tablet 400 mg PO DAILY Qty: 90 0RF dorzolamide-timolol 22.3-6.8 mg/mL drops 1 drops OP BID Qty: 10 0RF rosuvastatin 5 mg tablet 5 mg PO 3XWK Qty: 36 3RF Rx Instructions: sun, sun and sunday memantine 10 mg tablet 10 mg PO BID 90 Days Qty: 180 1RF cholecalciferol (vitamin D3) [Vitamin D3] 125 mcg (5,000 unit) Tablet 125 mcg PO .3XWEEKLY Qty: 30 0RF Rx Instructions: sun,sun,sunday dulaglutide 3 mg/0.5 mL pen injector 3 mg subcut WK Qty: 2 3RF Rx Instructions: sundays mecobalamin (vitamin B12) 5,000 mcg tablet,chewable 5,000 mcg PO .3XWEEKLY Qty: 30 0RF Rx Instructions: three times a week -sun,sun,sunday Vitamin C 1 gummy PO DAILY Qty: 90 0RF Rx Instructions: otc unknown strength Changed trazodone 50 mg tablet 50 mg PO PM Qty: 90 0RF triamterene-hydrochlorothiazid 37.5-25 mg tablet 1 tab PO QAM Qty: 90 0RF metformin 500 mg tablet extended release 24 hr 500 mg PO BID Qty: 180 0RF rivastigmine tartrate 3 mg capsule 1.5 mg PO BID Qty: 180 0RF No Action (DME) blood-glucose meter [OneTouch Ultra2 Meter] misc See Dose Instructions .ROUTE .MEDSUPPLY Qty: 1 0RF Dose Instruction: As directed Rx Instructions: As directed (DME) blood sugar diagnostic Strip See Dose Instructions .ROUTE .MEDSUPPLY Qty: 2 3RF Dose Instruction: As directed Rx Instructions: Test 2 times daily (DME) lancets 33 gauge misc See Dose Instructions .ROUTE .MEDSUPPLY Qty: 2 3RF Dose Instruction: As directed Rx Instructions: Test 2 times daily Discharge Orders: Discharge Order (Routine); Ordered 04/15/25 Ordered By: Lucero Ballesteros/Other Patient Handouts: High Blood Sugar (Hyperglycemia), Hypoglycemia (Low Blood Sugar), Managing Type 2 Diabetes Admission Data Admit Date/Time: 05/15/24 18:17 Attending Provider: Les Beckford Admit Provider: Jose Fam Primary Care Provider: Chris Clayton Other Providers: Jose Fam; [place]; [facility]; [facility],; [place]; [place] Other Interventions: Discharge Summary Assessment (RN) Last Done: 06/03/24 10:54 Hospital Stay Data Consultations 05/14/24 17:47 ED Decision to Admit Stat Diagnostic Imagining Performed 05/14/24 13:58 CT head/brain wo con Stat Pending Results Patient Have Any Pending Studies at Discharge: No Discharge Instructions Given to Patient (Per Discharging Provider) Mr. Phillips, Reji were recently hospitalized for worsened confusion. You were found to have a UTI and were treated appropriately. Please see recommendations below regarding your discharge. Please resume your outpatient medications. Please follow up with your PCP within 1-2 weeks of discharge. If you develop any chest pain, shortness of breath, fevers please report back to the ER for further care. Sincerely, Lucero Aguilar PA-C Supervising Physician Co-Signing Physician Notes Attending Attestation and Discharge Note: Chart reviewed, discharge care plan d/w FLORIAN Aguilar. I agree w/ the mack components of her discharge documentation. Of note - I did not perform a bedside visit or perform physical exam on day of discharge. 69yo male with h/o type II DM, hypertension, Alzheimer's dementia, posterior cortical atrophy, glaucoma. Presented with confusion/agitation, insomnia, and occasional aggressiveness. Had evidence of UTI upon admission; treated with abx for such. CT head neg for acute process. Seen by PT/OT who advised 11/09 supervision. Transferring to [facility] at time of discharge for placement. Other chronic medical problems remained stable while here. Les Beckford MD Total Time Total Time Spent Total Time Spent (In Minutes): 50 Total Time Includes: Examination of the Patient, Discharge Planning and Medication Reconciliation Coding Level of Care Code 61623 INP/OBS DISCH >30 MIN Diagnoses AMS (altered mental status) R41.82 Mild Alzheimer's dementia without behavioral disturbance, psychotic disturbance, mood disturbance, or anxiety, unspecified timing of dementia onset G30.9; F02.A0 Alzheimer's disease onset: unspecified onset Dementia behavioral or psychological symptom: without behavioral, psychotic, or mood disturbance or anxiety Dementia severity: mild Type 2 diabetes mellitus E11.9 HTN (hypertension) I10
== END 2024-06-03 11:27 | DRG 690 ==
LOC: ED 12:48 → EDINP 12:48 → SUATTDRO 18:20 → EDINP 05-15 13:10 → 3N 05-15 13:47 → SUATTDRO 05-15 18:17
DX: Z87.891 Personal history of nicotine dependence; N39.0 Urinary tract infection, site not specified; Z79.84 Long term (current) use of oral hypoglycemic drugs; Z91.040 Latex allergy status; R32 Unspecified urinary incontinence; Z66 Do not resuscitate; F02.811 Dementia in other diseases classified elsewhere, unspecified severity, with agitation; R45.1 Restlessness and agitation; G30.9 Alzheimer's disease, unspecified; I10 Essential (primary) hypertension; Z88.0 Allergy status to penicillin; E11.9 Type 2 diabetes mellitus without complications; F41.9 Anxiety disorder, unspecified; Z94.7 Corneal transplant status